=== PATIENT | male | born 1945 | race African-American/Black ===

== ENCOUNTER 2018-09-28 10:47 | Inpatient (IN) | payer MEDICARE, MEDICAID ==
[~2018-09-28] VITALS: Ht 160 cm; Wt 72.3 kg
[2018-09-28] MEDS ORDERED: [UNRECOGNIZED DRUG - REMARK] (11:05)
[2018-09-28 11:41] LABS: BASOPHILS 0.1 % (0-2); EOSINOPHILS 0 % (0-7); HEMATOCRIT 46.2 % (42.0-54.0); HEMOGLOBIN 14.5 g/dL (13.5-17.5); IMMATURE GRANULOCYTES 0.5 % (0-5); LYMPHOCYTES 7.1 % (15-50); MCHC 31.4 g/dL (31.0-37.0); MCV 95.5 fL (80.0-100.0); MEAN PLATELET VOLUME 11.8 fL (7.4-10.4); MONOCYTES 12.9 % (2-11); NEUTROPHILS 79.4 % (40-80); PLATELET COUNT 190 10x3/uL (130-400); RBC 4.84 10x6/uL (4.20-6.10); WBC 15.5 10x3/uL (4.8-10.8)
[2018-09-28 11:49] LABS: APTT 31.4 SECONDS (22.8-39.4); INR 1.14 (0.85-1.17); PROTIME 14.1 SECONDS (11.6-15.0)
[2018-09-28 11:53] LABS: ALBUMIN 2.6 g/dL (3.4-5.0); ALKALINE PHOSPHATASE 116 U/L (46-116); ALT (SGPT) 27 U/L (10-68); BILIRUBIN - TOTAL 0.55 mg/dL (0.2-1.3); CALC OSMOLALITY 285 mosm/kg (275-300); CALCIUM 9.6 mg/dL (8.5-10.1); CHLORIDE - SERUM 100 mmol/L (98-107); CREATININE - SERUM 1.9 mg/dL (0.6-1.3); GLUCOSE 172 mg/dL (74-106); POTASSIUM - SERUM 4.5 mmol/L (3.5-5.1); PROTEIN - SERUM 9.2 g/dL (6.4-8.2); SODIUM 140 mmol/L (136-145); UREA NITROGEN 21 mg/dL (7-18); eGFR NON AFRICAN AMERICAN 37 mL/min (90-120)
[2018-09-28 12:00] VITALS: BP 155/86
[2018-09-28 12:09] LABS: CKMB 0.6 U/L (0.0-3.6); CREATINE KINASE 212 UL (21-232); PRO BNP 1211 pg/mL (0-125)
[2018-09-28 12:13] LABS: TROPONIN-I 0.398 ng/mL (0.000-0.060)
[2018-09-28 13:31] VITALS: BP 139/113
[2018-09-28 14:10] VITALS: BP 146/95
[2018-09-28 14:50] LABS: CKMB 0.9 U/L (0.0-3.6); CREATINE KINASE 233 UL (21-232)
[2018-09-28 14:53] LABS: TROPONIN-I 0.343 ng/mL (0.000-0.060)
[2018-09-28 15:00] VITALS: BP 144/97
[2018-09-28 17:29] VITALS: BP 134/95; BMI 30.1
[2018-09-28 22:42] LABS: BASOPHILS 0.1 % (0-2); EOSINOPHILS 0 % (0-7); HEMATOCRIT 41.5 % (42.0-54.0); HEMOGLOBIN 12.8 g/dL (13.5-17.5); IMMATURE GRANULOCYTES 0.6 % (0-5); LYMPHOCYTES 5.9 % (15-50); MCH 29.7 pg (26.0-34.0); MCHC 30.8 g/dL (31.0-37.0); MCV 96.3 fL (80.0-100.0); MEAN PLATELET VOLUME 11.7 fL (7.4-10.4); MONOCYTES 3.7 % (2-11); NEUTROPHILS 89.7 % (40-80); PLATELET COUNT 179 10x3/uL (130-400); RBC 4.31 10x6/uL (4.20-6.10); RDW 14.3 % (11.5-14.5); WBC 11.7 10x3/uL (4.8-10.8)
[2018-09-28 22:53] LABS: ALBUMIN 2.2 g/dL (3.4-5.0); ALKALINE PHOSPHATASE 102 U/L (46-116); ALT (SGPT) 26 U/L (10-68); BILIRUBIN - TOTAL 0.26 mg/dL (0.2-1.3); CALCIUM 8.9 mg/dL (8.5-10.1); CHLORIDE - SERUM 102 mmol/L (98-107); CREATININE - SERUM 1.7 mg/dL (0.6-1.3); SODIUM 139 mmol/L (136-145); eGFR NON AFRICAN AMERICAN 42 mL/min (90-120)
[2018-09-28 22:54] LABS: CALC OSMOLALITY 292 mosm/kg (275-300); GLUCOSE 284 mg/dL (74-106); POTASSIUM - SERUM 5.5 mmol/L (3.5-5.1); UREA NITROGEN 27 mg/dL (7-18)
[2018-09-28 23:13] LABS: CKMB 0.9 U/L (0.0-3.6); CREATINE KINASE 172 UL (21-232); PRO BNP 1597 pg/mL (0-125)
[2018-09-28 23:14] LABS: TROPONIN-I 0.171 ng/mL (0.000-0.060)
[2018-09-29] VITALS (29 sets, daily range): BP systolic 79–136; BP diastolic 61–103; Ht 160 cm; Wt 72.3 kg
[2018-09-29 05:27] LABS: BASOPHILS 0.1 % (0-2); EOSINOPHILS 0 % (0-7); HEMOGLOBIN 12.1 g/dL (13.5-17.5); IMMATURE GRANULOCYTES 0.9 % (0-5); LYMPHOCYTES 6.9 % (15-50); MCH 29.4 pg (26.0-34.0); MCV 94.7 fL (80.0-100.0); MEAN PLATELET VOLUME 11.8 fL (7.4-10.4); NEUTROPHILS 85.1 % (40-80); PLATELET COUNT 172 10x3/uL (130-400); RBC 4.12 10x6/uL (4.20-6.10)
[2018-09-29 05:50] LABS: ANION GAP 13.2 mmol/L (8-16); BILIRUBIN - TOTAL 0.3 mg/dL (0.2-1.3); CALCIUM 8.6 mg/dL (8.5-10.1); CARBON DIOXIDE 28.7 mmol/L (21.0-32.0); MAGNESIUM - SERUM 2.2 mg/dL (1.8-2.4); POTASSIUM - SERUM 4.9 mmol/L (3.5-5.1); PROTEIN - SERUM 7.4 g/dL (6.4-8.2)
[2018-09-29 15:07] LABS: APPEARANCE CLEAR (CLEAR); BILIRUBIN NEGATIVE (NEGATIVE); COLOR YELLOW (YELLOW); GLUCOSE 100 mg/dL (NEGATIVE); KETONE NEGATIVE (NEGATIVE); NITRITE NEGATIVE (NEGATIVE); PROTEIN 1+ mg/dL (NEGATIVE); RED CELLS - URINE 0-5 /hpf (0-5); SPECIFIC GRAVITY 1.015 (1.005-1.020); UROBILINOGEN NORMAL (NORMAL); WHITE CELLS - URINE NSEEN /hpf (0-5)
[2018-09-30] VITALS (28 sets, daily range): BP systolic 94–153; BP diastolic 67–98
[2018-09-30 04:01] LABS: BASOPHILS 0.1 % (0-2); EOSINOPHILS 0 % (0-7); HEMATOCRIT 42.7 % (42.0-54.0); HEMOGLOBIN 13.2 g/dL (13.5-17.5); IMMATURE GRANULOCYTES 0.7 % (0-5); LYMPHOCYTES 6.2 % (15-50); MCH 28.6 pg (26.0-34.0); MCHC 30.9 g/dL (31.0-37.0); MEAN PLATELET VOLUME 11.7 fL (7.4-10.4); MONOCYTES 6.5 % (2-11); NEUTROPHILS 86.5 % (40-80); PLATELET COUNT 177 10x3/uL (130-400); RBC 4.61 10x6/uL (4.20-6.10)
[2018-09-30 04:09] LABS: MCV 92.6 fL (80.0-100.0); WBC 13.9 10x3/uL (4.8-10.8)
[2018-09-30 09:41] LABS: ALBUMIN 1.9 g/dL (3.4-5.0); ANION GAP 14.4 mmol/L (8-16); BILIRUBIN - TOTAL 0.18 mg/dL (0.2-1.3); CALCIUM 8.5 mg/dL (8.5-10.1); CARBON DIOXIDE 26.4 mmol/L (21.0-32.0); CREATININE - SERUM 2.2 mg/dL (0.6-1.3); MAGNESIUM - SERUM 2.5 mg/dL (1.8-2.4); POTASSIUM - SERUM 3.8 mmol/L (3.5-5.1); PROTEIN - SERUM 6.8 g/dL (6.4-8.2)
[2018-10-01] VITALS (25 sets, daily range): BP systolic 93–155; BP diastolic 64–96
[2018-10-01 05:37] LABS: BASOPHILS 0.3 % (0-2); EOSINOPHILS 0 % (0-7); HEMATOCRIT 38.2 % (42.0-54.0); HEMOGLOBIN 12.4 g/dL (13.5-17.5); IMMATURE GRANULOCYTES 3.5 % (0-5); LYMPHOCYTES 9.1 % (15-50); MCH 29.5 pg (26.0-34.0); MCHC 32.5 g/dL (31.0-37.0); MEAN PLATELET VOLUME 11.8 fL (7.4-10.4); MONOCYTES 6.3 % (2-11); NEUTROPHILS 80.8 % (40-80); PLATELET COUNT 170 10x3/uL (130-400); WBC 11.7 10x3/uL (4.8-10.8)
[2018-10-01 05:42] LABS: ALBUMIN 1.8 g/dL (3.4-5.0); ANION GAP 12.8 mmol/L (8-16); BILIRUBIN - TOTAL 0.23 mg/dL (0.2-1.3); CALCIUM 7.7 mg/dL (8.5-10.1); CARBON DIOXIDE 27.3 mmol/L (21.0-32.0); CREATININE - SERUM 2.1 mg/dL (0.6-1.3); MAGNESIUM - SERUM 2.5 mg/dL (1.8-2.4); POTASSIUM - SERUM 4.1 mmol/L (3.5-5.1); PROTEIN - SERUM 6.8 g/dL (6.4-8.2)
--- NOTE | 2018-10-01 16:35 | MORECARE ---
CASE MANAGEMENT DISCHARGE SUMMARY PATIENT: LIDIA FLORES UNIT: [id number] ADM DATE: 09/28/18 AGE: 73 : 43 SEX: M ROOM/BED: D.2301 AUTHOR: DIETER GUEVARA PHYSICIAN: REFERRING PHYSICIAN: ROLANDO BAR MD DATE OF SERVICE: 10/01/18 Discharge Plan Patient Name: [facility]IDIA FLORES [facility] [facility] 1945 Planned Disposition: Anticipated Discharge Date: Discharge Date: Expected LOS: Initial Reviewer: [email or web address] Initial Review Date: 09/28/2018 Generated: 10/01/18 5:35 pm Comments DCP- Discharge Planning Updated by [email or web address]: Negin Limon on 10/01/18 3:[address] CM attempted to meet with patient for intake assessment. Patient is currently on ventilator sedated and no family available. CM will continue to follow and assist as needed with discharge planning / needs. Patient Name: LIDIA FLORES Page [id number] at 1635 All edits/amendments must be made on the electronic document DICTATION DATE: 10/01/18 1635 RESTAURANT HOST/HOSTESS: SIMEON 10/01/18 1635 RPT#: [id number] DC DATE: STATUS: ADM IN [facility] [address] [place] [address] END OF REPORT
[2018-10-02] VITALS (24 sets, daily range): BP systolic 118–160; BP diastolic 74–92
[2018-10-02 05:25] LABS: HEMATOCRIT 39.3 % (42.0-54.0); HEMOGLOBIN 12.7 g/dL (13.5-17.5); MCH 29.3 pg (26.0-34.0); MCHC 32.3 g/dL (31.0-37.0); MCV 90.8 fL (80.0-100.0); PLATELET COUNT 158 10x3/uL (130-400); RBC 4.33 10x6/uL (4.20-6.10); RDW 14.3 % (11.5-14.5); WBC 13.2 10x3/uL (4.8-10.8)
[2018-10-02 05:26] LABS: MEAN PLATELET VOLUME 11.5 fL (7.4-10.4)
[2018-10-02 05:45] LABS: ALBUMIN 1.8 g/dL (3.4-5.0); ANION GAP 11.6 mmol/L (8-16); BILIRUBIN - TOTAL 0.33 mg/dL (0.2-1.3); CARBON DIOXIDE 28.9 mmol/L (21.0-32.0); CREATININE - SERUM 1.9 mg/dL (0.6-1.3); MAGNESIUM - SERUM 2.5 mg/dL (1.8-2.4); PHOSPHOROUS 2.2 mg/dL (2.5-4.9); POTASSIUM - SERUM 4.5 mmol/L (3.5-5.1); PROTEIN - SERUM 6.7 g/dL (6.4-8.2)
[2018-10-02 05:46] LABS: LYMPHOCYTES 14 % (15-50); MONOCYTES 2 % (2-11); NEUTROPHILS 80 % (40-80); PLATELET ESTIMATE NORMAL; PLATELET MORPHOLOGY NORMAL PLT MORPH
--- NOTE | 2018-10-02 15:01 | CN ---
PATIENT NAME:LIDIA FLORES MEDICAL RECORD: [id number] : 43 LOCATION:RASHIDAD.2301 ADMIT DATE: 09/28/18 ACCOUNT: [id number] CONSULTING PHYSICIAN: ENRRIQUE ALLEN MD REFERRING PHYSICIAN: ROLANDO BAR MD DATE OF CONSULTATION: 09/30/2018 HISTORY: This is a 73-year-old gentleman with no known history of coronary artery disease. Information was gained from old chart and talking with nursing staff. He presented with shortness of breath, cough, and hypotension. He had rapid deterioration in hemodynamic status, requiring intubation and pressors for a short course. He responded fairly well to IV fluids. Noted to have elevated troponin. We are asked to see him concerning cardiovascular status. REVIEW OF SYSTEMS: Unobtainable due to the patient's condition. MEDICATIONS: None chronically. ALLERGIES: None known. PHYSICAL EXAMINATION: GENERAL: Intubated and sedated. VITAL SIGNS: Blood pressure 109/77. Pulse 63 and regular. HEENT: Normocephalic and atraumatic. NECK: No JVD or bruit. HEART: Somewhat distant. Questionable S3 gallop. II/ systolic ejection murmur. LUNGS: Diminished air excursion. ABDOMEN: Soft and nontender. Hypoactive bowel sounds. EXTREMITIES: Pulses are preserved at 1+. There is no edema. IMPRESSION: Pneumonitis with probable sepsis. Difficult to fully interpret troponin given renal insufficiency, etc. Certainly this could be demand ischemia given age. We cannot exclude underlying coronary artery disease. Supportive measures as you are doing. Check echocardiographic study. Further recommendations based on clinical course. TRANSINT:[id number] Voice Confirmation ID: [id number] DOCUMENT ID: [id number] ENRRIQUE ALLEN MD at 1501 CC: [id number] DICTATION DATE: 09/30/18 1103 SEMICONDUCTOR WAFERS ETCHER STRIPPER: 09/30/18 1341 ADM IN [place] [address] [place] [address]
--- NOTE | 2018-10-02 15:01 | EC ---
PATIENT:LIDIA FLORES DATE OF SERVICE: 09/28/18 SEX: M MEDICAL RECORD: [id number] DATE OF : 43 LOCATION:[facility] D230 AGE OF PATIENT: 73 ADMISSION DATE: 09/28/18 REFERRING PHYSICIAN: INTERPRETING PHYSICIAN: ENRRIQUE ALLEN MD ECHOCARDIOGRAM REPORT ECHO CHARGES 4 ECHO COMPLETE Date: 09/29/18 CLINICAL DIAGNOSIS: CHF ECHOCARDIOGRAPHIC MEASUREMENTS (adult normal given) AC root (d.<3.7cm) 3.0 cm LV Septum d (<1.2 cm> 1.0 cm Valve Excursion 1.0 cm LV Septum (systole) 1.2 cm Left Atria (s.<4.0cm> 2.8 cm LVPW d(<1.2cm) 1.0 cm RV (d.<2.3cm) 2.0 cm LVPW (sytole) 1.4 cm LV diastole(<5.6CM) 3.1 cm MV E-F(>70mm/sec) cm LV systole 1.9 cm LVOT Diameter 2.2 cm MV exc.(>10mm) cm Est.ejection fraction (50-75%) % DOPPLER: LVIT cm/sec A 79.0 cm/sec E 42.0 cm/sec LA cm/sec RVSP 18.2 mmHg LVOT 57.0 cm/sec AOP1/2T m/s Asc. Ao 79.0 cm/sec RVOT 49.0 cm/sec RA cm/sec PA 59.0 cm/sec AV Gradient Peak 2.5 mmHg AV Mean 1.3 mmHg AV Area 2.6 cm MV Gradient Peak 2.9 mmHg MV Mean 0.89 mmHg MV Area cm COMMENTS: Chest Pain Coordinator: John FARRELLOE Health Communications Specialist: 3 Dr. Jurado TAPE# PACS Pericardial Effusion N DATE OF SERVICE: 09/29/2018 Adequate 2-D Echo, Color Flow and Spectral Doppler, and M-Mode LVH is present. LV internal dimensions are normal. LV is globally hypokinetic with reduced EF, estimated EF 20% to 25%. Aortic valve sclerosis without stenosis by Doppler interrogation. Left atrium is normal at 2.7 cm. Mitral valve shows no prolapse. Trace MR. Right sided chambers are normal. Trace TR. TRANSINT:[id number] Voice Confirmation ID: [id number] DOCUMENT ID: [id number] ECHOCARDIOGRAM REPORT [id number] LIDIA FLORES,ENRRIQUE Johnson MD at 1501 CC: [id number] DICTATION DATE: 09/29/18 184 VISITOR SERVICES ASSISTANT: 09/30/18 0209 ADM IN [place] [id number] [place] [id number]
[2018-10-03] VITALS (26 sets, daily range): BP systolic 120–177; BP diastolic 78–110
[2018-10-03 04:35] LABS: HEMATOCRIT 39.6 % (42.0-54.0); HEMOGLOBIN 12.6 g/dL (13.5-17.5); MCH 28.7 pg (26.0-34.0); MCHC 31.8 g/dL (31.0-37.0); MCV 90.2 fL (80.0-100.0); MEAN PLATELET VOLUME 11.5 fL (7.4-10.4); PLATELET COUNT 154 10x3/uL (130-400); RBC 4.39 10x6/uL (4.20-6.10); RDW 14.4 % (11.5-14.5)
[2018-10-03 04:44] LABS: ANION GAP 11.9 mmol/L (8-16); BILIRUBIN - TOTAL 0.28 mg/dL (0.2-1.3); CALCIUM 8.4 mg/dL (8.5-10.1); CARBON DIOXIDE 30.8 mmol/L (21.0-32.0); CREATININE - SERUM 1.8 mg/dL (0.6-1.3); MAGNESIUM - SERUM 2.9 mg/dL (1.8-2.4); PHOSPHOROUS 1.9 mg/dL (2.5-4.9); POTASSIUM - SERUM 4.7 mmol/L (3.5-5.1); PROTEIN - SERUM 7.2 g/dL (6.4-8.2)
[2018-10-03 04:49] LABS: ALBUMIN 2.3 g/dL (3.4-5.0)
[2018-10-03 05:01] LABS: LYMPHOCYTES 9 % (15-50); MONOCYTES 5 % (2-11); NEUTROPHILS 80 % (40-80); PLATELET ESTIMATE NORMAL; PLATELET MORPHOLOGY NORMAL PLT MORPH
[2018-10-03 07:38] LABS: IMMUNOGLOBULIN A 599 mg/dL (61-437)
--- NOTE | 2018-10-03 15:40 | MORECARE ---
CASE MANAGEMENT DISCHARGE SUMMARY PATIENT: LIDIA FLORES UNIT: [id number] ADM DATE: 09/28/18 AGE: 73 : 43 SEX: M ROOM/BED: D.2301 AUTHOR: DIETER GUEVARA PHYSICIAN: REFERRING PHYSICIAN: ROLANDO BAR MD DATE OF SERVICE: 10/03/18 Discharge Plan Patient Name: LIDIA FLORES [facility]: [facility]:[place] : 1945 Planned Disposition: Anticipated Discharge Date: Discharge Date: Expected LOS: Initial Reviewer: [email or web address] Initial Review Date: 09/28/2018 Generated: 10/03/18 4:39 pm Comments DCP- Discharge Planning Updated by [email or web address] Limon on 10/01/18 3:[address] CM attempted to meet with patient for intake assessment. Patient is currently on ventilator sedated and no family available. CM will continue to follow and assist as needed with discharge planning / needs. DCPIA - Discharge Planning Initial Assessment Updated by [email or web address]: Negin Limon on 10/03/18 3:38 pm * Is the patient Alert and Oriented? Yes * How many steps to enter\exit or inside your home? * PCP Dr. Griffiths * Pharmacy [facility] * Preadmission Environment Home Alone * ADLs Independent * List name and contact numbers for known caregivers / representatives who currently or will assist patient after discharge: Maria Elena Jackson - sister - [phone] Mariusz Flores - brother [facility] - Denia Mccrary [facility] - [phone] * Verbal permission to speak to the caregivers and representatives has been obtained from the patient. N/A * Community resources currently utilized None * Additional services required to return to the preadmission environment? No * Can the patient safely return to the preadmission environment? Yes * Has this patient been hospitalized within the prior 30 days at any hospital? No Last DP export: 10/01/18 3:35 p Patient Name: LIDIA FLORES Page [phone] at 1540 All edits/amendments must be made on the electronic document DICTATION DATE: 10/03/181538 CURATORIAL ASSISTANT: SIMEON 10/03/18 1539 RPT#: [id number] DC DATE: STATUS: ADM IN [facility] [address] [place] [address] END OF REPORT
--- NOTE | 2018-10-03 15:47 | MORECARE ---
CASE MANAGEMENT DISCHARGE SUMMARY PATIENT: LIDIA FLORES UNIT: [id number] ADM DATE: 09/28/18 AGE: 73 : 43 SEX: M ROOM/BED: D.2301 AUTHOR: ISMAELDOC PHYSICIAN: REFERRING PHYSICIAN: ROLANDO BAR MD DATE OF SERVICE: 10/03/18 Discharge Plan Patient Name: LDIIA FLORES Facility: [facility]:[place] : 1945 Planned Disposition: Anticipated Discharge Date: Discharge Date: Expected LOS: Initial Reviewer: [email or web address] Initial Review Date: 09/28/2018 Generated: 10/03/18 4:47 pm Comments DCP- Discharge Planning Updated by [email or web address]: Negin Limon on 10/03/18 2:[address] Patient Name: LIDIA FLORES Admission Status: ER Accout number: [id number] Admission Date: 09-28-2018 : 1945 Admission Diagnosis:SEPSIS, UNSPECIFIED ORGANISM Attending: ROLANDO BAR Current LOS: 5 Anticipated DC Date: Planned Disposition: Primary Insurance: [facility] MEDICARE SOLUTIONS Discharge Planning Comments: CM met with patient at bedside. Patient states he lives alone and plans to return to his home at discharge. Patient was extubated earlier today. Patient denies any discharge needs at this time. Patient is just wanting to eat and having to await swallowing eval. CM will continue to monitor and assist as needed with discharge planning / needs. Shipper/Receiver: Negin Limon DCP- Discharge Planning Updated by [email or web address]: Negin Limon on 10/01/18 3:[address] CM attempted to meet with patient for intake assessment. Patient is currently on ventilator sedated and no family available. CM will continue to follow and assist as needed with discharge planning / needs. DCPIA - Discharge Planning Initial Assessment Updated by [email or web address]: Negin Limon on 10/03/18 3:38 pm * Is the patient Alert and Oriented? Yes * How many steps to enter\exit or inside your home? * PCP Dr. Griffiths * Pharmacy [facility] * Preadmission Environment Home Alone * ADLs Independent * List name and contact numbers for known caregivers / representatives who currently or will assist patient after discharge: Maria Elena Jackson - sister - [phone] Mariusz Flores - brother POA - Denia Mccrary - sister - [phone] * Verbal permission to speak to the caregivers and representatives has been obtained from the patient. N/A * Community resources currently utilized None * Additional services required to return to the preadmission environment? No * Can the patient safely return to the preadmission environment? Yes * Has this patient been hospitalized within the prior 30 days at any hospital? No Last DP export: 10/03/18 2:39 p Patient Name: LIDIA FLORES Page [phone] at 1547 All edits/amendments must be made on the electronic document DICTATION DATE: 10/03/181546 MINISTER OF RELIGION: SIMEON 10/03/181546 RPT#: [id number] DC DATE: STATUS: ADM IN [facility] [address] [place] [address] END OF REPORT
--- NOTE | 2018-10-03 16:42 | CN ---
PATIENT NAME:LIDIA FLORES MEDICAL RECORD: [id number] : 43 LOCATION:RASHIDAD.2301 ADMIT DATE: 09/28/18 ACCOUNT: [id number] CONSULTING PHYSICIAN: KWABENA CRAFT MD REFERRING PHYSICIAN: AMANDA BAR MD DATE OF CONSULTATION: 09/28/2018 CONSULT REQUESTING PHYSICIAN: Amanda Bar MD REASON FOR CONSULTATION: Acute exacerbation of COPD. HISTORY OF PRESENT ILLNESS: Mr. Flores is a 73-year-old -Slov[place] gentleman who has a history of severe COPD, still current everyday smoker. The patient came into the ER for worsening shortness of breath for the last few days. He has a fever and chill. Workup showed that he has an elevated troponin. The patient is coughing. The cough is productive of yellow color sputum production. There is also shortness of breath with mild exertion. Denies any night sweats. REVIEW OF SYSTEMS: As in history of present illness. PAST MEDICAL HISTORY: 1. COPD of severe degree. 2. Associated asthma. 3. History of interstitial lung disease. 4. Possible pulmonary nodule. 5. Bronchiectasis. ALLERGIES: There are no known drug allergies. MEDICATIONS: Saperion is reviewed. PERSONAL AND SOCIAL HISTORY: The patient is still current everyday smoker. He is a nondrinker. FAMILY HISTORY: Noncontributory. PHYSICAL EXAMINATION: GENERAL: Now, the patient is lying comfortably. He is in mild distress. VITAL SIGNS: The blood pressure is 134/95, pulse is 125, respirations 22, temperature is 99, SpO2 93% on 5 liters nasal cannula. HEENT: Conjunctivae are pink. Sclerae are not icteric. NECK: Supple, no JVD. CHEST: The chest excursion is minimal on both bilateral crackles or wheezing on forceful expiration. HEART: Rhythm regular, normal sound, no murmur. ABDOMEN: Soft, bowel sounds present. No hepatosplenomegaly. RECTAL: Deferred. EXTREMITIES: No cyanosis, no clubbing, no pedal edema. CENTRAL NERVOUS SYSTEM: The patient is awake and alert. There are no obvious cranial nerve abnormality. The gait was not tested. CHEST RADIOGRAPH: There are increased interstitial markings bilaterally. There are calcified granuloma. There are also 2-3 mm pulmonary nodules. CONSULT REPORT [id number] LIDIA FLORES OTHER LABORATORY DATA: CBC: WBC 15.5, hemoglobin 14.5, hematocrit 46.2, the platelet count 190. Chemistry: Sodium is 140, creatinine is 1.9. ABG: The pH is 7.29, pCO2 is 62.9, the pO2 64. The bicarbonate is 30.6. The lactic acid is 1.5. IMPRESSION: 1. Olqko-wj-rjgcnnn hypoxic hypercapnic respiratory failure. 2. Respiratory acidosis. 3. Pneumonia, most likely community-acquired pneumonia. 4. Acute exacerbation of chronic obstructive pulmonary disease. 5. Leukocytosis. 6. Acute kidney injury. 7. Interstitial lung disease. 8. Bronchiectasis. 9. Elevated cardiac enzyme. 10. Tobacco dependence syndrome. RECOMMENDATION: 1. Discontinue Zithromax, start on Levaquin IV. 2. Rocephin IV. 3. Adjust the dose of methylprednisolone. 4. Brovana, budesonide nebulizer. 5. Albuterol ipratropium nebulizer. 6. Singulair 10 mg a day. 7. IV fluid. 8. Follow up labs and chest radiograph. Dr. Bar, thank you for involving me in the care of Ms. Flores. TRANSINT:[id number] Voice Confirmation ID: [id number] DOCUMENT ID: [id number] KWABENA CRAFT MD at 1642 CC: [id number] DICTATION DATE: 09/28/18 175 PRIMARY PRODUCTS INSPECTORS: 09/29/18 0107 ADM IN [facility] [address] [place] [address]
[2018-10-04] VITALS (14 sets, daily range): BP systolic 122–172; BP diastolic 80–98
[2018-10-04 05:17] LABS: HEMOGLOBIN 12.4 g/dL (13.5-17.5); MCH 28.5 pg (26.0-34.0); MCHC 31.8 g/dL (31.0-37.0); MCV 89.7 fL (80.0-100.0); MEAN PLATELET VOLUME 11.2 fL (7.4-10.4); PLATELET COUNT 160 10x3/uL (130-400); RBC 4.35 10x6/uL (4.20-6.10); RDW 14.2 % (11.5-14.5)
[2018-10-04 05:46] LABS: LYMPHOCYTES 13 % (15-50); MONOCYTES 2 % (2-11); NEUTROPHILS 79 % (40-80); PLATELET ESTIMATE DECREASED
[2018-10-04 05:51] LABS: ALBUMIN 2.6 g/dL (3.4-5.0); ANION GAP 15.4 mmol/L (8-16); BILIRUBIN - TOTAL 0.32 mg/dL (0.2-1.3); CALCIUM 8.7 mg/dL (8.5-10.1); CARBON DIOXIDE 28.8 mmol/L (21.0-32.0); CREATININE - SERUM 1.7 mg/dL (0.6-1.3); MAGNESIUM - SERUM 2.6 mg/dL (1.8-2.4); POTASSIUM - SERUM 5.2 mmol/L (3.5-5.1); PROTEIN - SERUM 7.2 g/dL (6.4-8.2)
[2018-10-04 20:09] LABS: IGG SUBCLASS 1 607 mg/dL (248-810); IGG SUBCLASS 2 292 mg/dL (130-555); IGG SUBCLASS 3 33 mg/dL (15-102); IGG SUBCLASS 4 28 mg/dL (2-96); IMMUNOGLOBULIN G 928 mg/dL (700-1600)
[2018-10-05] VITALS: BP 128/89
[2018-10-05 04:00] VITALS: BP 132/92
[2018-10-05 06:23] LABS: BASOPHILS 0.2 % (0-2); EOSINOPHILS 0 % (0-7); HEMATOCRIT 38.9 % (42.0-54.0); HEMOGLOBIN 12.6 g/dL (13.5-17.5); IMMATURE GRANULOCYTES 13.5 % (0-5); LYMPHOCYTES 4.5 % (15-50); MCH 28.8 pg (26.0-34.0); MCHC 32.4 g/dL (31.0-37.0); MCV 88.8 fL (80.0-100.0); MEAN PLATELET VOLUME 11.6 fL (7.4-10.4); MONOCYTES 5.5 % (2-11); NEUTROPHILS 76.3 % (40-80); PLATELET COUNT 166 10x3/uL (130-400); RBC 4.38 10x6/uL (4.20-6.10); WBC 16.8 10x3/uL (4.8-10.8)
[2018-10-05 06:49] LABS: ANION GAP 12.9 mmol/L (8-16); CALCIUM 8.6 mg/dL (8.5-10.1); CARBON DIOXIDE 26.3 mmol/L (21.0-32.0); CREATININE - SERUM 1.7 mg/dL (0.6-1.3); PHOSPHOROUS 3.1 mg/dL (2.5-4.9); POTASSIUM - SERUM 5.2 mmol/L (3.5-5.1)
[2018-10-05 09:21] VITALS: BP 134/85
[2018-10-05 12:52] VITALS: BP 138/85
[2018-10-05 15:29] LABS: IMMUNOGLOBULIN E 1142 IU/mL (0-100)
[2018-10-05 15:42] LABS: CREATININE - URINE 48.3 mg/dL (30-125); PRO/CRE RATIO URINE 0.6 mg/g; PROTEIN - URINE 28.9 mg/dL (0.0-11.9)
[2018-10-05 16:12] VITALS: BP 125/82
--- NOTE | 2018-10-05 17:02 | MORECARE ---
CASE MANAGEMENT DISCHARGE SUMMARY PATIENT: LIDIA FLORES UNIT: [id number] ADM DATE: 09/28/18 AGE: 73 : 43 SEX: M ROOM/BED: D.2115 AUTHOR: ISMAELDOC PHYSICIAN: REFERRING PHYSICIAN: ROLANDO BAR MD DATE OF SERVICE: 10/05/18 Discharge Plan Patient Name: LIDIA FLORES Facility: [facility]:[place] : 1945 Planned Disposition: Inpatient Rehab Anticipated Discharge Date: 10/08/18 Discharge Date: Expected LOS: 10 Initial Reviewer: [email or web address] Initial Review Date: 09/28/2018 Generated: 10/05/18 6:02 pm Comments DCP- Discharge Planning Updated by [email or web address]: Negin Limon on 10/03/18 2:[address] Patient Name: LIDIA FLORES Admission Status: ER Accout number: [id number] Admission Date: 09-28-2018 : 1945 Admission Diagnosis:SEPSIS, UNSPECIFIED ORGANISM Attending: ROLANDO BAR Current LOS: 5 Anticipated DC Date: Planned Disposition: Primary Insurance: [facility] MEDICARE SOLUTIONS Discharge Planning Comments: CM met with patient at bedside. Patient states he lives alone and plans to return to his home at discharge. Patient was extubated earlier today. Patient denies any discharge needs at this time. Patient is just wanting to eat and having to await swallowing eval. CM will continue to monitor and assist as needed with discharge planning / needs. Cytotechnologist/Histotechnologist: Negin Limon DCP- Discharge Planning Updated by [email or web address]: Negin Limon on 10/01/18 3:[address] CM attempted to meet with patient for intake assessment. Patient is currently on ventilator sedated and no family available. CM will continue to follow and assist as needed with discharge planning / needs. DCPIA - Discharge Planning Initial Assessment Updated by [email or web address]: Negin Limon on 10/03/18 3:38 pm * Is the patient Alert and Oriented? Yes * How many steps to enter\exit or inside your home? * PCP Dr. Griffiths * Pharmacy [facility] * Preadmission Environment Home Alone * ADLs Independent * List name and contact numbers for known caregivers / representatives who currently or will assist patient after discharge: Maria Elena Jackson - sister - [phone] Mariusz Flores - brother POA - Denia Mccrary - sister - [phone] * Verbal permission to speak to the caregivers and representatives has been obtained from the patient. N/A * Community resources currently utilized None * Additional services required to return to the preadmission environment? No * Can the patient safely return to the preadmission environment? Yes * Has this patient been hospitalized within the prior 30 days at any hospital? No Coverage Notice Reviewer: [email or web address] Key Velásquez Notice Issued Date-Time: 10/05/2018 15:45 Notice Type: IM Discharge Notice Notice Delivered To: Patient Relationship to Patient: Prenatal Nurse Name: Delivery Method: HAND - Hand Delivered Mary Ann Days: Prior Verbal Notification: Recipient Understood Notice: Yes Recipient Signature: Yes Med Rec Note Co-signed by Attending: Coverage Notice Comment: Last DP export: 10/03/18 2:47 p Patient Name: LIDIA FLORES Page 27564 at 1702 All edits/amendments must be made on the electronic document DICTATION DATE: 10/05/181700 PROMPT CARE RN: SIMEON 10/05/181700 RPT#: [id number] DC DATE: STATUS: ADM IN [facility] [address] [place] [address] END OF REPORT
--- NOTE | 2018-10-05 17:09 | MORECARE ---
CASE MANAGEMENT DISCHARGE SUMMARY PATIENT: LIDIA FLORES UNIT: [id number] ADM DATE: 09/28/18 AGE: 73 : 43 SEX: M ROOM/BED: D.2115 AUTHOR: DIETER GUEVARA PHYSICIAN: REFERRING PHYSICIAN: ROLANDO BAR MD DATE OF SERVICE: 10/05/18 Discharge Plan Patient Name: LIDIA FLORES [facility] [facility] 1945 Planned Disposition: Inpatient Rehab Anticipated Discharge Date: 10/08/18 Discharge Date: Expected LOS: 10 Initial Reviewer: [email or web address] Initial Review Date: 09/28/2018 Generated: 10/05/18 6:09 pm Comments DCP- Discharge Planning Updated by [email or web address]: Stanley Velásquez on 10/05/18 4:[address] Patient Name: LIDIA FLORES Encounter No: [id number] : 1945 Primary Insurance: [facility] MEDICARE SOLUTIONS Anticipated DC Date: 10-08-2018 Planned Disposition: Inpatient Rehab External Planned Provider: [facility] DCP follow-up note: CM RECEIVED ORDER FOR INPATIENT REHAB PRESCREENING. CM SPOKE TO PT IN ROOM, DISCUSSED REHAB OPTIONS, LOCATIONS AND PROVIDERS. PT WOULD LIKE TO SPEAK TO REHAB HERE FOR ADMISSION TO [facility]. PT UNDERSTANDS HE HAS MANAGED MEDICARE THAT REQUIRES PRIOR AUTORIZATION FOR SERVICES. IMPORTANT MESSAGE FROM MEDICARE PROVIDED AND EXPLAINED. CM NOTIFIED [facility] OF [facility]. CM WAITING ADMISSION DETERMINATION FROM [facility] WELL INSURANCE AUTHORIZATION FOR INPATIENT REHAB SERVICES. HONG Quiroz DCP- Discharge Planning Updated by [email or web address]: Negin Limon on 10/03/18 2:[address] Patient Name: LIDIA FLORES Admission Status: ER Accout number: [id number] Admission Date: 09-28-2018 : 1945 Admission Diagnosis:SEPSIS, UNSPECIFIED ORGANISM Attending: ROLANDO BAR Current LOS: 5 Anticipated DC Date: Planned Disposition: Primary Insurance: [facility] MEDICARE SOLUTIONS Discharge Planning Comments: CM met with patient at bedside. Patient states he lives alone and plans to return to his home at discharge. Patient was extubated earlier today. Patient denies any discharge needs at this time. Patient is just wanting to eat and having to await swallowing eval. CM will continue to monitor and assist as needed with discharge planning / needs. Billboard Poster Helper: Negin Limon DCP- Discharge Planning Updated by [email or web address]: Negin Limon on 10/01/18 3:[address] CM attempted to meet with patient for intake assessment. Patient is currently on ventilator sedated and no family available. CM will continue to follow and assist as needed with discharge planning / needs. DCPIA - Discharge Planning Initial Assessment Updated by [email or web address]: Negin Limon on 10/03/18 3:38 pm * Is the patient Alert and Oriented? Yes * How many steps to enter\exit or inside your home? * PCP Dr. Griffiths * Pharmacy [facility] * Preadmission Environment Home Alone * ADLs Independent * List name and contact numbers for known caregivers / representatives who currently or will assist patient after discharge: Maria Elena Jackson [facility] [phone] Mariusz Flores - brother [facility] Denia [facility] [phone] * Verbal permission to speak to the caregivers and representatives has been obtained from the patient. N/A * Community resources currently utilized None * Additional services required to return to the preadmission environment? No * Can the patient safely return to the preadmission environment? Yes * Has this patient been hospitalized within the prior 30 days at any hospital? No Coverage Notice Reviewer: [id number] Key Velásquez Notice Issued Date-Time: 10/05/2018 15:45 Notice Type: IM Discharge Notice Notice Delivered To: Patient Relationship to Patient: Brand Sales Consultant Name: Delivery Method: HAND - Hand Delivered Mary Ann Days: Prior Verbal Notification: Recipient Understood Notice: Yes Recipient Signature: Yes Med Rec Note Co-signed by Attending: Coverage Notice Comment: Last DP export: 10/05/18 4:02 p Patient Name: LIDIA FLORES Page [phone] at 1709 All edits/amendments must be made on the electronic document DICTATION DATE: 10/05/181707 CLINICAL SPECIALIST: SIMEON 10/05/181707 RPT#: [id number] DC DATE: STATUS: ADM IN [facility] [address] [place] [place] [address] END OF REPORT
[2018-10-05 19:00] VITALS: BP 108/64
[2018-10-06] VITALS: BP 123/81
[2018-10-06 04:00] VITALS: BP 131/75
[2018-10-06 07:33] LABS: ANION GAP 12.7 mmol/L (8-16); CALCIUM 8.4 mg/dL (8.5-10.1); CARBON DIOXIDE 25.7 mmol/L (21.0-32.0); CREATININE - SERUM 1.6 mg/dL (0.6-1.3); PHOSPHOROUS 3.1 mg/dL (2.5-4.9); POTASSIUM - SERUM 5.4 mmol/L (3.5-5.1)
[2018-10-06 07:42] LABS: BASOPHILS 0.3 % (0-2); EOSINOPHILS 0.1 % (0-7); HEMATOCRIT 41.5 % (42.0-54.0); HEMOGLOBIN 13.4 g/dL (13.5-17.5); IMMATURE GRANULOCYTES 11.3 % (0-5); LYMPHOCYTES 5.4 % (15-50); MCH 28.5 pg (26.0-34.0); MCHC 32.3 g/dL (31.0-37.0); MCV 88.3 fL (80.0-100.0); MEAN PLATELET VOLUME 10.9 fL (7.4-10.4); MONOCYTES 6.6 % (2-11); NEUTROPHILS 76.3 % (40-80); PLATELET COUNT 161 10x3/uL (130-400); RDW 14.1 % (11.5-14.5); WBC 14.9 10x3/uL (4.8-10.8)
[2018-10-06 08:43] LABS: ERYTHROCYTE SEDIMENTATION RATE 34 mm/hr (0-20)
[2018-10-06 10:34] VITALS: BP 120/75
[2018-10-06 13:06] VITALS: BP 108/67
[2018-10-06 16:17] VITALS: BP 117/77
[2018-10-06 19:54] VITALS: BP 126/85
[2018-10-07 03:44] VITALS: BP 129/83
[2018-10-07 05:14] LABS: HEMATOCRIT 41.4 % (42.0-54.0); HEMOGLOBIN 13.4 g/dL (13.5-17.5); MCH 28.9 pg (26.0-34.0); MCHC 32.4 g/dL (31.0-37.0); MCV 89.4 fL (80.0-100.0); MEAN PLATELET VOLUME 11.3 fL (7.4-10.4); PLATELET COUNT 168 10x3/uL (130-400); RBC 4.63 10x6/uL (4.20-6.10); RDW 14.4 % (11.5-14.5); WBC 13.3 10x3/uL (4.8-10.8)
[2018-10-07 05:32] LABS: ANION GAP 13.1 mmol/L (8-16); CALCIUM 8.3 mg/dL (8.5-10.1); CARBON DIOXIDE 26.3 mmol/L (21.0-32.0); CREATININE - SERUM 1.5 mg/dL (0.6-1.3); PHOSPHOROUS 3.3 mg/dL (2.5-4.9); POTASSIUM - SERUM 5.4 mmol/L (3.5-5.1)
[2018-10-07 07:46] LABS: LYMPHOCYTES 13 % (15-50); MONOCYTES 3 % (2-11); NEUTROPHILS 84 % (40-80); PLATELET ESTIMATE DECREASED
[2018-10-07 09:27] VITALS: BP 137/88
[2018-10-07 11:42] VITALS: BP 147/89
[2018-10-07 15:57] VITALS: BP 119/60
[2018-10-07 20:00] VITALS: BP 119/82
[2018-10-08 04:00] VITALS: BP 120/78
[2018-10-08 06:51] LABS: BASOPHILS 0.1 % (0-2); EOSINOPHILS 0 % (0-7); HEMATOCRIT 40.6 % (42.0-54.0); HEMOGLOBIN 13.1 g/dL (13.5-17.5); IMMATURE GRANULOCYTES 3.8 % (0-5); LYMPHOCYTES 5.8 % (15-50); MCH 28.7 pg (26.0-34.0); MCHC 32.3 g/dL (31.0-37.0); MEAN PLATELET VOLUME 10.5 fL (7.4-10.4); MONOCYTES 5.7 % (2-11); NEUTROPHILS 84.6 % (40-80); PLATELET COUNT 165 10x3/uL (130-400); RBC 4.56 10x6/uL (4.20-6.10); RDW 14.3 % (11.5-14.5); WBC 14.9 10x3/uL (4.8-10.8)
[2018-10-08 07:05] LABS: ANION GAP 11.9 mmol/L (8-16); CALCIUM 8.2 mg/dL (8.5-10.1); CARBON DIOXIDE 28.5 mmol/L (21.0-32.0); CREATININE - SERUM 1.4 mg/dL (0.6-1.3); PHOSPHOROUS 3.8 mg/dL (2.5-4.9)
[2018-10-08 07:06] LABS: POTASSIUM - SERUM 4.4 mmol/L (3.5-5.1)
[2018-10-08 08:56] VITALS: BP 115/78
[2018-10-08 17:10] LABS: SPE - A/G RATIO 1.1 (0.7-1.7); SPE - ALBUMIN 3.3 g/dL (2.9-4.4); SPE - ALPHA-1 GLOBULIN 0.2 g/dL (0.0-0.4); SPE - ALPHA-2 GLOBULIN 0.5 g/dL (0.4-1.0); SPE - GAMMA GLOBULIN 1.3 g/dL (0.4-1.8); SPE - M-SPIKE Not Observed g/dL (Not Observed); SPE - TOTAL PROTEIN 6.3 g/dL (6.0-8.5)
[2018-10-08 19:00] VITALS: BP 130/78
[2018-10-09 04:00] VITALS: BP 112/67
[2018-10-09 05:15] LABS: BASOPHILS 0.1 % (0-2); EOSINOPHILS 0 % (0-7); HEMATOCRIT 39.2 % (42.0-54.0); HEMOGLOBIN 12.7 g/dL (13.5-17.5); IMMATURE GRANULOCYTES 1.6 % (0-5); MCH 28.7 pg (26.0-34.0); MCHC 32.4 g/dL (31.0-37.0); MCV 88.7 fL (80.0-100.0); MEAN PLATELET VOLUME 10.6 fL (7.4-10.4); MONOCYTES 4.6 % (2-11); NEUTROPHILS 88.7 % (40-80); PLATELET COUNT 158 10x3/uL (130-400); RBC 4.42 10x6/uL (4.20-6.10); RDW 14.2 % (11.5-14.5); WBC 12.2 10x3/uL (4.8-10.8)
[2018-10-09 05:32] LABS: ANION GAP 13.4 mmol/L (8-16); CARBON DIOXIDE 27.4 mmol/L (21.0-32.0); CREATININE - SERUM 1.5 mg/dL (0.6-1.3); POTASSIUM - SERUM 4.8 mmol/L (3.5-5.1)
[2018-10-09 07:00] VITALS: BP 100/82
[2018-10-09 13:02] VITALS: BP 112/79
--- NOTE | 2018-10-09 14:13 | MORECARE ---
CASE MANAGEMENT DISCHARGE SUMMARY PATIENT: LIDIA FLORES UNIT: [id number] ADM DATE: 09/28/18 AGE: 73 : 44 SEX: M ROOM/BED: D.2115 AUTHOR: DIETER GUEVARA PHYSICIAN: REFERRING PHYSICIAN: ROLANDO BAR MD DATE OF SERVICE: 10/09/18 Discharge Plan Patient Name: LIDIA FLORES [facility] [facility] 1945 Planned Disposition: Home Anticipated Discharge Date: 10/09/18 Discharge Date: Expected LOS: 11 Initial Reviewer: [id number] Initial Review Date: 09/28/2018 Generated: 10/09/18 3:13 pm Comments DCP- Discharge Planning Updated by [id number]: Stanley Velásquez on 10/05/18 4:[address] Patient Name: LIDIA FLORES Encounter No: [id number] : 1945 Primary Insurance: [facility] MEDICARE SOLUTIONS Anticipated DC Date: 10-08-2018 Planned Disposition: Inpatient Rehab External Planned Provider: [facility] DCP follow-up note: CM RECEIVED ORDER FOR INPATIENT REHAB PRESCREENING. CM SPOKE TO PT IN ROOM, DISCUSSED REHAB OPTIONS, LOCATIONS AND PROVIDERS. PT WOULD LIKE TO SPEAK TO REHAB HERE FOR ADMISSION TO [facility]. PT UNDERSTANDS HE HAS MANAGED MEDICARE THAT REQUIRES PRIOR AUTORIZATION FOR SERVICES. IMPORTANT MESSAGE FROM MEDICARE PROVIDED AND EXPLAINED. CM NOTIFIED [facility]. CM WAITING ADMISSION DETERMINATION FROM [facility] INPATIENT REHAB WELL INSURANCE AUTHORIZATION FOR INPATIENT REHAB SERVICES. HONG Quiroz MANGWANDA DCP- Discharge Planning Updated by [id number]: Negin Limon on 10/03/18 2:[address] Patient Name: LIDIA FLORES Admission Status: ER Accout number: [id number] Admission Date: 09-28-2018 : 1945 Admission Diagnosis:SEPSIS, UNSPECIFIED ORGANISM Attending: ROLANDO BAR Current LOS: 5 Anticipated DC Date: Planned Disposition: Primary Insurance: [facility] MEDICARE SOLUTIONS Discharge Planning Comments: CM met with patient at bedside. Patient states he lives alone and plans to return to his home at discharge. Patient was extubated earlier today. Patient denies any discharge needs at this time. Patient is just wanting to eat and having to await swallowing eval. CM will continue to monitor and assist as needed with discharge planning / needs. Piccolo Mechanic: Negin Limon DCP- Discharge Planning Updated by [id number]: Negin Limon on 10/01/18 3:[address] CM attempted to meet with patient for intake assessment. Patient is currently on ventilator sedated and no family available. CM will continue to follow and assist as needed with discharge planning / needs. DCPIA - Discharge Planning Initial Assessment Updated by [id number]: Negin Limon on 10/03/18 3:38 pm * Is the patient Alert and Oriented? Yes * How many steps to enter\exit or inside your home? * PCP Dr. Griffiths * Pharmacy [facility] * Preadmission Environment Home Alone * ADLs Independent * List name and contact numbers for known caregivers / representatives who currently or will assist patient after discharge: Maria Elena Jackson [facility] - [phone] Mariusz Flores - brotherasmo [facility] Denia [facility] - [phone] * Verbal permission to speak to the caregivers and representatives has been obtained from the patient. N/A * Community resources currently utilized None * Additional services required to return to the preadmission environment? No * Can the patient safely return to the preadmission environment? Yes * Has this patient been hospitalized within the prior 30 days at any hospital? No Coverage Notice Reviewer: [id number] Key Velásquez Notice Issued Date-Time: 10/05/2018 15:45 Notice Type: IM Discharge Notice Notice Delivered To: Patient Relationship to Patient: Perfume And Toilet Water Maker Name: Delivery Method: HAND - Hand Delivered Mary Ann Days: Prior Verbal Notification: Recipient Understood Notice: Yes Recipient Signature: Yes Med Rec Note Co-signed by Attending: Coverage Notice Comment: Reviewer: [id number] Key Velásquez Notice Issued Date-Time: 10/09/2018 12:40 Notice Type: IM Discharge Notice Notice Delivered To: Patient Relationship to Patient: Perfume And Toilet Water Maker Name: Delivery Method: HAND - Hand Delivered Mary Ann Days: Prior Verbal Notification: Recipient Understood Notice: Yes Recipient Signature: Yes Med Rec Note Co-signed by Attending: Coverage Notice Comment: Last DP export: 10/05/18 4:09 p Patient Name: LIDIA FLORES Page [id number] at 1413 All edits/amendments must be made on the electronic document DICTATION DATE: 10/09/181412 WIRE STRANDER: SIMEON 10/09/181412 RPT#: [id number] DC DATE: STATUS: ADM IN [facility] [address] [place] [address] END OF REPORT
--- NOTE | 2018-10-09 14:20 | MORECARE ---
CASE MANAGEMENT DISCHARGE SUMMARY PATIENT: LIDIA FLORES UNIT: [id number] ADM DATE: 09/28/18 AGE: 73 : 44 SEX: M ROOM/BED: D.8485 AUTHOR: ISMAEL,DOC PHYSICIAN: REFERRING PHYSICIAN: ROLANDO BAR MD DATE OF SERVICE: 10/09/18 Discharge Plan Patient Name: LIDIA FLORES Facility: [facility]:[place] : 1945 Planned Disposition: Home Anticipated Discharge Date: 10/09/18 Discharge Date: Expected LOS: 11 Initial Reviewer: [email or web address] Initial Review Date: 09/28/2018 Generated: 10/09/18 3:20 pm Comments DCP- Discharge Planning Updated by [id number]: Stanley Velásquez on 10/09/18 1:[address] Patient Name: LIDIA FLORES Encounter No: [id number] : 1945 Primary Insurance: [facility] MEDICARE SOLUTIONS Anticipated DC Date: 10-09-2018 Planned Disposition: Home DCP follow-up note: CM RECEIVED ORDERS FOR VEST THERAPY AT HOME. CM MET WITH PT IN ROOM TO DISCUSS DISCHARGE NEEDS AND PLANNING. CM DISCUSSED AVAILABILITY OF HOME HEALTH, REHAB SERVICES AND MEDICAL EQUIPMENT WELL VEST THERAPY. PT STATES HE WANTS TO DISCHARGE HOME AND DOES NOT WANT TO WAIT FOR INPATIENT REHAB ANY LONGER. CM EXPLAINED THAT INSURANCE MAY PROVIDE DETERMINATION TODAY OR TOMORROW. PT REPORTS HE IS STONG ENOUGH TO GO HOME NOW. PT REPORTS GETTING UP INDEPENDENTLY IN ROOM WITHOUT PROBLEM. CM REVIEWED THERAPY NOTES AND INFORMED PT THAT CM RECOMMENDS THERAPY AT INPATIENT OR [facility] BEFORE GOING HOME. PT REPORTS HE IS NOT STAYING ANYWHERE FOR REHAB FOR 7 TO 20 DAYS. PT STATES HE IS NOT GOING TO A NURSING FACILITY UNTIL HE CANNOT TAKE CARE OF HIMSELF AT HOME ANY LONGER. PT REPORTS HIS APARTMENT IS NOW READY TO MOVE INTO AND HE WANTS TO GO HOME. PT REPORTS THE HOUSING AUTHORITY IS MOVING HIS BELONGINGS TO THE REMODELED APARTMENT FOR HIM. CM DISCUSSED VEST FOR HOME THERAPY. PT STATES HE HAS ONLY WORN IT THREE TIMES HERE AND DOES NOT WANT CM TO SET IT UP NOW. PT STATES THAT HE WILL THINK ABOUT IT AND LET DR. GRIFFITHS KNOW IN TWO WEEKS IF PT FEELS LIKE HE NEEDS IT. CM DISCUSSED HOME HEALTH AND HOME BOUND STATUS FOR HOME HEALTH SERVICES. PT STATES HE IS NOT HOME BOUND AND IS NOT GOING TO STOP LEAVING HIS APARTMENT TO GO FISHING. PT DENIES DISCHARGE NEEDS. PT REPORTS HIS BROTHER WILL PICK HIM UP TO TRANSPORT HOME AT DISCHARGE. PT STATES HE WANTS TO GO HOME TODAY IMPORTANT MESSAGE FROM MEDICARE PROVIDED AND EXPLAINED. PT REPORTS HAVING NEBULIZER AT HOME AND HOME OXYGEN ALREADY. PT DENIES NEED OF FURTHER MEDICAL EQUIPMENT. CM NOTIFIED BEDSIDE NURSE. PT DECLINES REHAB PLACEMENT. PT REFUSES VEST TREATMENT ARRANGEMENT FOR HOME. PT DECLINES HOME HEALTH REPORTING HE IS NOT HOME BOUND. PT PLANS TO DISCHARGE HOME ALONE, FAMILY TO TRANSPORT. [facility]- Discharge Planning Updated by [email or web address]: Stanley Velásquez on 10/05/18 4:[address] Patient Name: LIDIA FLORES Encounter No: [id number] : 1945 Primary Insurance: [facility] MEDICARE SOLUTIONS Anticipated DC Date: 10-08-2018 Planned Disposition: Inpatient Rehab External Planned Provider: [facility] DCP follow-up note: CM RECEIVED ORDER FOR INPATIENT REHAB PRESCREENING. CM SPOKE TO PT IN ROOM, DISCUSSED REHAB OPTIONS, LOCATIONS AND PROVIDERS. PT WOULD LIKE TO SPEAK TO REHAB HERE FOR ADMISSION TO [facility]. PT UNDERSTANDS HE HAS MANAGED MEDICARE THAT REQUIRES PRIOR AUTORIZATION FOR SERVICES. IMPORTANT MESSAGE FROM MEDICARE PROVIDED AND EXPLAINED. CM NOTIFIED [facility]. CM WAITING ADMISSION DETERMINATION FROM [facility] INPATIENT REH[facility] WELL INSURANCE AUTHORIZATION FOR INPATIENT REHAB SERVICES. HONG Quiroz DCP- Discharge Planning Updated by [id number]: Negin Limon on 10/03/18 2:[address] Patient Name: LIDIA FLORES Admission Status: ER Accout number: [id number] Admission Date: 09-28-2018 : 1945 Admission Diagnosis:SEPSIS, UNSPECIFIED ORGANISM Attending: ROLANDO BAR Current LOS: 5 Anticipated DC Date: Planned Disposition: Primary Insurance: [facility] MEDICARE SOLUTIONS Discharge Planning Comments: CM met with patient at bedside. Patient states he lives alone and plans to return to his home at discharge. Patient was extubated earlier today. Patient denies any discharge needs at this time. Patient is just wanting to eat and having to await swallowing eval. CM will continue to monitor and assist as needed with discharge planning / needs. Big Data Analytics Lead: Negin Limon DCP- Discharge Planning Updated by [id number]: Negin Limon on 10/01/18 3:[address] CM attempted to meet with patient for intake assessment. Patient is currently on ventilator sedated and no family available. CM will continue to follow and assist as needed with discharge planning / needs. DCPIA - Discharge Planning Initial Assessment Updated by [id number]: Negin Limon on 10/03/18 3:38 pm * Is the patient Alert and Oriented? Yes * How many steps to enter\exit or inside your home? * PCP Dr. Griffiths * Pharmacy [facility] * Preadmission Environment Home Alone * ADLs Independent * List name and contact numbers for known caregivers / representatives who currently or will assist patient after discharge: Maria Elena Jackson - sister - [phone] Mariusz Mackey brother A - Denia Mccrary - [facility] - [phone] * Verbal permission to speak to the caregivers and representatives has been obtained from the patient. N/A * Community resources currently utilized None * Additional services required to return to the preadmission environment? No * Can the patient safely return to the preadmission environment? Yes * Has this patient been hospitalized within the prior 30 days at any hospital? No Coverage Notice Reviewer: [id number] Velásquez Notice Issued Date-Time: 10/05/2018 15:45 Notice Type: IM Discharge Notice Notice Delivered To: Patient Relationship to Patient: Motor And Generator Assembler Name: Delivery Method: HAND - Hand Delivered Mary Ann Days: Prior Verbal Notification: Recipient Understood Notice: Yes Recipient Signature: Yes Med Rec Note Co-signed by Attending: Coverage Notice Comment: Reviewer: [id number] Key Velásquez Notice Issued Date-Time: 10/09/2018 12:40 Notice Type: IM Discharge Notice Notice Delivered To: Patient Relationship to Patient: Motor And Generator Assembler Name: Delivery Method: HAND - Hand Delivered Mary Ann Days: Prior Verbal Notification: Recipient Understood Notice: Yes Recipient Signature: Yes Med Rec Note Co-signed by Attending: Coverage Notice Comment: Last DP export: 10/09/18 1:13 p Patient Name: LIDIA FLORES Page 12129 at 1420 All edits/amendments must be made on the electronic document DICTATION DATE: 10/09/181419 BODY TRIMMER UPHOLSTERER: SIMEON 10/09/181419 RPT#: [id number] DC DATE: STATUS: ADM IN [facility] [address] [place] [address] END OF REPORT
[2018-10-09 16:31] VITALS: BP 100/71
[2018-10-09 19:00] VITALS: BP 90/64
[2018-10-10] VITALS: BP 100/61
[2018-10-10 04:00] VITALS: BP 107/69
[2018-10-10 08:08] VITALS: BP 111/73
[2018-10-10 09:05] LABS: BASOPHILS 0 % (0-2); EOSINOPHILS 0 % (0-7); HEMATOCRIT 38.1 % (42.0-54.0); HEMOGLOBIN 12.3 g/dL (13.5-17.5); IMMATURE GRANULOCYTES 0.9 % (0-5); LYMPHOCYTES 7.6 % (15-50); MCH 28.8 pg (26.0-34.0); MCHC 32.3 g/dL (31.0-37.0); MCV 89.2 fL (80.0-100.0); MEAN PLATELET VOLUME 10.6 fL (7.4-10.4); MONOCYTES 3.5 % (2-11); PLATELET COUNT 154 10x3/uL (130-400); RBC 4.27 10x6/uL (4.20-6.10); RDW 14.3 % (11.5-14.5)
[2018-10-10 09:07] LABS: WBC 8.8 10x3/uL (4.8-10.8)
[2018-10-10 09:27] LABS: ALBUMIN 2.2 g/dL (3.4-5.0); ANION GAP 12.1 mmol/L (8-16); BILIRUBIN - TOTAL 0.36 mg/dL (0.2-1.3); CALCIUM 8.2 mg/dL (8.5-10.1); CARBON DIOXIDE 27.9 mmol/L (21.0-32.0); CREATININE - SERUM 1.3 mg/dL (0.6-1.3); PROTEIN - SERUM 5.9 g/dL (6.4-8.2)
[2018-10-10 12:02] VITALS: BP 116/65
[2018-10-10] MEDS ORDERED: PREDNISONE10 MG PO (13:30)
[2018-10-10] MEDS ORDERED: BETAPACE 80 MG80 MG PO (13:30)
--- NOTE | 2018-10-10 15:39 | MORECARE ---
CASE MANAGEMENT DISCHARGE SUMMARY PATIENT: LIDIA FLORES UNIT: [id number] ADM DATE: 09/28/18 AGE: 73 : 44 SEX: M ROOM/BED: D.5745 AUTHOR: ISMAEL,DOC PHYSICIAN: REFERRING PHYSICIAN: ROLANDO BAR MD DATE OF SERVICE: 10/10/18 Discharge Plan Patient Name: LIDIA FLORES Facility: [facility]:[place] : 1945 Planned Disposition: Home Anticipated Discharge Date: 10/09/18 Discharge Date: Expected LOS: 11 Initial Reviewer: [id number] Initial Review Date: 09/28/2018 Generated: 10/10/18 4:39 pm Comments DCP- Discharge Planning Updated by [id number]: Stanley Velásquez on 10/09/18 1:[address] Patient Name: LIDIA FLORES Encounter No: [id number] : 1945 Primary Insurance: [facility] MEDICARE SOLUTIONS Anticipated DC Date: 10-09-2018 Planned Disposition: Home DCP follow-up note: CM RECEIVED ORDERS FOR VEST THERAPY AT HOME. CM MET WITH PT IN ROOM TO DISCUSS DISCHARGE NEEDS AND PLANNING. CM DISCUSSED AVAILABILITY OF HOME HEALTH, REHAB SERVICES AND MEDICAL EQUIPMENT WELL VEST THERAPY. PT STATES HE WANTS TO DISCHARGE HOME AND DOES NOT WANT TO WAIT FOR INPATIENT REHAB ANY LONGER. CM EXPLAINED THAT INSURANCE MAY PROVIDE DETERMINATION TODAY OR TOMORROW. PT REPORTS HE IS STONG ENOUGH TO GO HOME NOW. PT REPORTS GETTING UP INDEPENDENTLY IN ROOM WITHOUT PROBLEM. CM REVIEWED THERAPY NOTES AND INFORMED PT THAT CM RECOMMENDS THERAPY AT INPATIENT OR ASSISTED BEFORE GOING HOME. PT REPORTS HE IS NOT STAYING ANYWHERE FOR REHAB FOR 7 TO 20 DAYS. PT STATES HE IS NOT GOING TO A NURSING FACILITY UNTIL HE CANNOT TAKE CARE OF HIMSELF AT HOME ANY LONGER. PT REPORTS HIS APARTMENT IS NOW READY TO MOVE INTO AND HE WANTS TO GO HOME. PT REPORTS THE HOUSING AUTHORITY IS MOVING HIS BELONGINGS TO THE REMODELED APARTMENT FOR HIM. CM DISCUSSED VEST FOR HOME THERAPY. PT STATES HE HAS ONLY WORN IT THREE TIMES HERE AND DOES NOT WANT CM TO SET IT UP NOW. PT STATES THAT HE WILL THINK ABOUT IT AND LET DR. GRIFFITHS KNOW IN TWO WEEKS IF PT FEELS LIKE HE NEEDS IT. CM DISCUSSED HOME HEALTH AND HOME BOUND STATUS FOR HOME HEALTH SERVICES. PT STATES HE IS NOT HOME BOUND AND IS NOT GOING TO STOP LEAVING HIS APARTMENT TO GO FISHING. PT DENIES DISCHARGE NEEDS. PT REPORTS HIS BROTHER WILL PICK HIM UP TO TRANSPORT HOME AT DISCHARGE. PT STATES HE WANTS TO GO HOME TODAY IMPORTANT MESSAGE FROM MEDICARE PROVIDED AND EXPLAINED. PT REPORTS HAVING NEBULIZER AT HOME AND HOME OXYGEN ALREADY. PT DENIES NEED OF FURTHER MEDICAL EQUIPMENT. CM NOTIFIED BEDSIDE NURSE. PT DECLINES REHAB PLACEMENT. PT REFUSES VEST TREATMENT ARRANGEMENT FOR HOME. PT DECLINES HOME HEALTH REPORTING HE IS NOT HOME BOUND. PT PLANS TO DISCHARGE HOME ALONE, FAMILY TO TRANSPORT. [facility]- Discharge Planning Updated by [id number]: Stanley Velásquez on 10/05/18 4:[address] Patient Name: LIDIA FLORES Encounter No: [id number] : 1945 Primary Insurance: [facility] MEDICARE SOLUTIONS Anticipated DC Date: 10-08-2018 Planned Disposition: Inpatient Rehab External Planned Provider: [facility] DCP follow-up note: CM RECEIVED ORDER FOR INPATIENT REHAB PRESCREENING. CM SPOKE TO PT IN ROOM, DISCUSSED REHAB OPTIONS, LOCATIONS AND PROVIDERS. PT WOULD LIKE TO SPEAK TO REHAB HERE FOR ADMISSION TO [facility]. PT UNDERSTANDS HE HAS MANAGED MEDICARE THAT REQUIRES PRIOR AUTORIZATION FOR SERVICES. IMPORTANT MESSAGE FROM MEDICARE PROVIDED AND EXPLAINED. CM NOTIFIED [facility]. CM WAITING ADMISSION DETERMINATION FROM [facility] INPAT[facility] REH[facility] WELL INSURANCE AUTHORIZATION FOR INPATIENT REHAB SERVICES. HONG Quiroz DCP- Discharge Planning Updated by [id number]: Negin Limon on 10/03/18 2:[address] Patient Name: LIDIA FLORES Admission Status: ER Accout number: [id number] Admission Date: 09-28-2018 : 1945 Admission Diagnosis:SEPSIS, UNSPECIFIED ORGANISM Attending: ROLANDO BAR Current LOS: 5 Anticipated DC Date: Planned Disposition: Primary Insurance: [facility] MEDICARE SOLUTIONS Discharge Planning Comments: CM met with patient at bedside. Patient states he lives alone and plans to return to his home at discharge. Patient was extubated earlier today. Patient denies any discharge needs at this time. Patient is just wanting to eat and having to await swallowing eval. CM will continue to monitor and assist as needed with discharge planning / needs. Graduate Civil Engineer: Negin Limon DCP- Discharge Planning Updated by [email or web address]: Negin Limon on 10/01/18 3:[address] CM attempted to meet with patient for intake assessment. Patient is currently on ventilator sedated and no family available. CM will continue to follow and assist as needed with discharge planning / needs. DCPIA - Discharge Planning Initial Assessment Updated by [id number]: Negin Limon on 10/03/18 3:38 pm * Is the patient Alert and Oriented? Yes * How many steps to enter\exit or inside your home? * PCP Dr. Griffiths * Pharmacy [facility] * Preadmission Environment Home Alone * ADLs Independent * List name and contact numbers for known caregivers / representatives who currently or will assist patient after discharge: Maria Elena Jackson - sister - [phone] Mariusz Mackey brother A - Denia Mccrary [facility] - [phone] * Verbal permission to speak to the caregivers and representatives has been obtained from the patient. N/A * Community resources currently utilized None * Additional services required to return to the preadmission environment? No * Can the patient safely return to the preadmission environment? Yes * Has this patient been hospitalized within the prior 30 days at any hospital? No External Providers External Provider: [facility] Next Contact Date: 10/10/2018 Service Request Date: Service Type: Resolution: Reviewer: Comments: Coverage Notice Reviewer: [id number] Key Velásquez Notice Issued Date-Time: 10/05/2018 15:45 Notice Type: IM Discharge Notice Notice Delivered To: Patient Relationship to Patient: Manager Business Continuity Name: Delivery Method: HAND - Hand Delivered Mary Ann Days: Prior Verbal Notification: Recipient Understood Notice: Yes Recipient Signature: Yes Med Rec Note Co-signed by Attending: Coverage Notice Comment: Reviewer: [id number] Key Velásquez Notice Issued Date-Time: 10/09/2018 12:40 Notice Type: IM Discharge Notice Notice Delivered To: Patient Relationship to Patient: Manager Business Continuity Name: Delivery Method: HAND - Hand Delivered Mary Ann Days: Prior Verbal Notification: Recipient Understood Notice: Yes Recipient Signature: Yes Med Rec Note Co-signed by Attending: Coverage Notice Comment: Last DP export: 10/09/18 1:20 p Patient Name: LIDIA FLORES Page [id number] at 1539 All edits/amendments must be made on the electronic document DICTATION DATE: 10/10/181537 PHARMACY TECHNICIAN PROGRAM DIRECTOR: SIMEON 10/10/181537 RPT#: [id number] DC DATE: STATUS: ADM IN [facility] [address] [place] [address] END OF REPORT
--- NOTE | 2018-10-10 15:49 | MORECARE ---
CASE MANAGEMENT DISCHARGE SUMMARY PATIENT: LIDIA FLORES UNIT: [id number] ADM DATE: 09/28/18 AGE: 73 : 43 SEX: M ROOM/BED: D.2115 AUTHOR: ISMAEL,DOC PHYSICIAN: REFERRING PHYSICIAN: ROLANDO BAR MD DATE OF SERVICE: 10/10/18 Discharge Plan Patient Name: LIDIA FLORES Facility: [facility]:[place] : 1945 Planned Disposition: Home with Home Health Anticipated Discharge Date: 10/09/18 Discharge Date: Expected LOS: 11 Initial Reviewer: [id number] Initial Review Date: 09/28/2018 Generated: 10/10/18 4:49 pm Comments DCP- Discharge Planning Updated by [id number]: Stanley Velásquez on 10/09/18 1:[address] Patient Name: LIDIA FLORES Encounter No: [id number] : 1945 Primary Insurance: [facility] MEDICARE SOLUTIONS Anticipated DC Date: 10-09-2018 Planned Disposition: Home DCP follow-up note: CM RECEIVED ORDERS FOR VEST THERAPY AT HOME. CM MET WITH PT IN ROOM TO DISCUSS DISCHARGE NEEDS AND PLANNING. CM DISCUSSED AVAILABILITY OF HOME HEALTH, REHAB SERVICES AND MEDICAL EQUIPMENT WELL VEST THERAPY. PT STATES HE WANTS TO DISCHARGE HOME AND DOES NOT WANT TO WAIT FOR INPATIENT REHAB ANY LONGER. CM EXPLAINED THAT INSURANCE MAY PROVIDE DETERMINATION TODAY OR TOMORROW. PT REPORTS HE IS STONG ENOUGH TO GO HOME NOW. PT REPORTS GETTING UP INDEPENDENTLY IN ROOM WITHOUT PROBLEM. CM REVIEWED THERAPY NOTES AND INFORMED PT THAT CM RECOMMENDS THERAPY AT INPATIENT OR [facility] BEFORE GOING HOME. PT REPORTS HE IS NOT STAYING ANYWHERE FOR REHAB FOR 7 TO 20 DAYS. PT STATES HE IS NOT GOING TO A NURSING FACILITY UNTIL HE CANNOT TAKE CARE OF HIMSELF AT HOME ANY LONGER. PT REPORTS HIS APARTMENT IS NOW READY TO MOVE INTO AND HE WANTS TO GO HOME. PT REPORTS THE HOUSING AUTHORITY IS MOVING HIS BELONGINGS TO THE REMODELED APARTMENT FOR HIM. CM DISCUSSED VEST FOR HOME THERAPY. PT STATES HE HAS ONLY WORN IT THREE TIMES HERE AND DOES NOT WANT CM TO SET IT UP NOW. PT STATES THAT HE WILL THINK ABOUT IT AND LET DR. GRIFFITHS KNOW IN TWO WEEKS IF PT FEELS LIKE HE NEEDS IT. CM DISCUSSED HOME HEALTH AND HOME BOUND STATUS FOR HOME HEALTH SERVICES. PT STATES HE IS NOT HOME BOUND AND IS NOT GOING TO STOP LEAVING HIS APARTMENT TO GO FISHING. PT DENIES DISCHARGE NEEDS. PT REPORTS HIS BROTHER WILL PICK HIM UP TO TRANSPORT HOME AT DISCHARGE. PT STATES HE WANTS TO GO HOME TODAY IMPORTANT MESSAGE FROM MEDICARE PROVIDED AND EXPLAINED. PT REPORTS HAVING NEBULIZER AT HOME AND HOME OXYGEN ALREADY. PT DENIES NEED OF FURTHER MEDICAL EQUIPMENT. CM NOTIFIED BEDSIDE NURSE. PT DECLINES REHAB PLACEMENT. PT REFUSES VEST TREATMENT ARRANGEMENT FOR HOME. PT DECLINES HOME HEALTH REPORTING HE IS NOT HOME BOUND. PT PLANS TO DISCHARGE HOME ALONE, FAMILY TO TRANSPORT. Stanley VelásquezHONG DCP- Discharge Planning Updated by [id number]: Stanley Velásquez on 10/05/18 4:[address] Patient Name: LIDIA FLORES Encounter No: [id number] : 1945 Primary Insurance: [facility] MEDICARE SOLUTIONS Anticipated DC Date: 10-08-2018 Planned Disposition: Inpatient Rehab External Planned Provider: [facility] DCP follow-up note: CM RECEIVED ORDER FOR INPATIENT REHAB PRESCREENING. CM SPOKE TO PT IN ROOM, DISCUSSED REHAB OPTIONS, LOCATIONS AND PROVIDERS. PT WOULD LIKE TO SPEAK TO REHAB HERE FOR ADMISSION TO [facility]. PT UNDERSTANDS HE HAS MANAGED MEDICARE THAT REQUIRES PRIOR AUTORIZATION FOR SERVICES. IMPORTANT MESSAGE FROM MEDICARE PROVIDED AND EXPLAINED. CM NOTIFIED [facility] OF [facility]. CM WAITING ADMISSION DETERMINATION FROM [facility] WELL INSURANCE AUTHORIZATION FOR INPATIENT REHAB SERVICES. Stanley VelásquezHONG DCP- Discharge Planning Updated by [id number]: Negin Limon on 10/03/18 2:[address] Patient Name: LIDIA FLORES Admission Status: ER Accout number: [id number] Admission Date: 09-28-2018 : 1945 Admission Diagnosis:SEPSIS, UNSPECIFIED ORGANISM Attending: ROLANDO BAR Current LOS: 5 Anticipated DC Date: Planned Disposition: Primary Insurance: [facility] MEDICARE SOLUTIONS Discharge Planning Comments: CM met with patient at bedside. Patient states he lives alone and plans to return to his home at discharge. Patient was extubated earlier today. Patient denies any discharge needs at this time. Patient is just wanting to eat and having to await swallowing eval. CM will continue to monitor and assist as needed with discharge planning / needs. Radiation Safety Officer: Negin Limon DCP- Discharge Planning Updated by [email or web address]: Negin Limon on 10/01/18 3:[address] CM attempted to meet with patient for intake assessment. Patient is currently on ventilator sedated and no family available. CM will continue to follow and assist as needed with discharge planning / needs. DCPIA - Discharge Planning Initial Assessment Updated by [id number]: Negin Limon on 10/03/18 3:38 pm * Is the patient Alert and Oriented? Yes * How many steps to enter\exit or inside your home? * PCP Dr. Griffiths * Pharmacy [facility] * Preadmission Environment Home Alone * ADLs Independent * List name and contact numbers for known caregivers / representatives who currently or will assist patient after discharge: Maria Elena Jackson - sister - [phone] Mariusz Mackey brother [facility] - Denia Mccrary [facility] - [phone] * Verbal permission to speak to the caregivers and representatives has been obtained from the patient. N/A * Community resources currently utilized None * Additional services required to return to the preadmission environment? No * Can the patient safely return to the preadmission environment? Yes * Has this patient been hospitalized within the prior 30 days at any hospital? No Coverage Notice Reviewer: [id number] Key Velásquez Notice Issued Date-Time: 10/05/2018 15:45 Notice Type: IM Discharge Notice Notice Delivered To: Patient Relationship to Patient: [employer]ent [employer] Manager Name: Delivery Method: HAND - Hand Delivered Mary Ann Days: Prior Verbal Notification: Recipient Understood Notice: Yes Recipient Signature: Yes Med Rec Note Co-signed by Attending: Coverage Notice Comment: Reviewer: [id number] Key Velásquez Notice Issued Date-Time: 10/09/2018 12:40 Notice Type: IM Discharge Notice Notice Delivered To: Patient Relationship to Patient: [employer] Manager Name: Delivery Method: HAND - Hand Delivered Mary Ann Days: Prior Verbal Notification: Recipient Understood Notice: Yes Recipient Signature: Yes Med Rec Note Co-signed by Attending: Coverage Notice Comment: Last DP export: 10/10/18 2:39 p Patient Name: LIDAI FLORES Page [id number] at 1549 All edits/amendments must be made on the electronic document DICTATION DATE: 10/10/18 154 ROCK CUTTER: SIMEON 10/10/181548 RPT#: [id number] DC DATE: STATUS: ADM IN [facility] [address] [place] [address] END OF REPORT
--- NOTE | 2018-10-10 16:05 | MORECARE ---
CASE MANAGEMENT DISCHARGE SUMMARY PATIENT: LIDIA FLORES UNIT: [id number] ADM DATE: 09/28/18 AGE: 73 : 44 SEX: M ROOM/BED: D.6705 AUTHOR: DIETER GUEVARA PHYSICIAN: REFERRING PHYSICIAN: ROLANDO BAR MD DATE OF SERVICE: 10/10/18 Discharge Plan Patient Name: LIDIA FLORES Facility: [facility]:[place] : 1945 Planned Disposition: Home with Home Health Anticipated Discharge Date: 10/09/18 Discharge Date: Expected LOS: 11 Initial Reviewer: [email or web address] Initial Review Date: 09/28/2018 Generated: 10/10/18 5:05 pm Comments DCP- Discharge Planning Updated by [id number]: Stanley Velásquez on 10/10/18 2:[address] Patient Name: LIDIA FLORES Encounter No: [id number] : 1945 Primary Insurance: [facility] MEDICARE SOLUTIONS Anticipated DC Date: 10-09-2018 Planned Disposition: Home with Home Health External Planned Provider: [facility] DCP follow-up note: CM RECEIVED REQUEST TO MEET WITH PT AND NIIMELDA IN ROOM. CM MET WITH THEM TO DISCUSS DISCHARGE PLANNING AND NEEDS. PT INFORMED CM THAT IT IS OK TO SHARE TREATMENT AND DISCHARGE PLANNING INFORMATION WITH WON. WON INFORMED CM THAT PT IS NOT ABLE TO READ OR WRITE. CM INFORMED HER OF WAITING INSURANCE DETERMINATION FOR REHAB PLACEMENT, PT'S REFUSAL OF LONGTERM, HOME HEALTH AND MEDICAL EQUIPMENT. WON DISCUSSED THIS WITH PT, PT WILL ACCEPT HOME HEALTH IF DECLINED BY REHAB. CHOICE FOR [facility] SIGNED. CM SPOKE TO L[facility] OF INPATIENT REHAB, THEY HAVE NOT RECEIVED AUTHORIATION OR DENIAL FOR REHAB AT THIS TIME, THEY CAN CONTACT PT AT HOME AND ADMIT IF PT IS APPROVED. DISCHARGE ORDER RECEIVED. CM SPOKE TO JARRED PAZ WHO INFORMED CM THAT DR. GARVIN CAN FOLLOW FOR HOME HEALTH. CM SPOKE TO PT AND MONIKA IN ROOM, INFORMED HER OF NO DETERMINATION FOR INPATIENT AND ABILITY TO ARRANGE HOME HEALTH. DR. GARVIN WILL ONLY SIGN ORDERS FOR ONE MONTH PER KAYLIE OF [facility] WHO CALLED DR. LARSON OFFICE. PT WILL NEED NEW PRIMARY CARE DOCTOR. CM WENT OVER THERAPY NOTES WITH PT AND NIECE; PT'S NIECE INFORMED CM THAT PT IS NOT GOING TO BE APPROVED FOR REHAB HE IS DOING TOO WELL PHYSICALLY AT THIS TIME, PT WILL GO HOME WITH HOME HEALTH AND SHE WILL ASSIST PT WITH FINDING ANOTHER DOCTOR. CONTACT INFORMATION FOR FAMILY PROVIDED: BROTHER, SHEMAR FLORES, AYAZ UPTONECE, . CM CALLED [facility], , PROVIDED REFERRAL INFORMATION TO KAYLIE WHO ACCEPTED PT. CM FAXED DISCHARGE INFORMATION TO [facility] AT [phone]. BEDSIDE NURSE NOTIFIED. Stanley Velásquez, CASE MANAGEMENT DCP- Discharge Planning Updated by [id number]: Stanley Velásquez on 10/09/18 1:[address] Patient Name: LIDIA FLORES Encounter No: [id number] : 1945 Primary Insurance: [facility] MEDICARE SOLUTIONS Anticipated DC Date: 10-09-2018 Planned Disposition: Home DCP follow-up note: CM RECEIVED ORDERS FOR VEST THERAPY AT HOME. CM MET WITH PT IN ROOM TO DISCUSS DISCHARGE NEEDS AND PLANNING. CM DISCUSSED AVAILABILITY OF HOME HEALTH, REHAB SERVICES AND MEDICAL EQUIPMENT WELL VEST THERAPY. PT STATES HE WANTS TO DISCHARGE HOME AND DOES NOT WANT TO WAIT FOR INPATIENT REHAB ANY LONGER. CM EXPLAINED THAT INSURANCE MAY PROVIDE DETERMINATION TODAY OR TOMORROW. PT REPORTS HE IS STONG ENOUGH TO GO HOME NOW. PT REPORTS GETTING UP INDEPENDENTLY IN ROOM WITHOUT PROBLEM. CM REVIEWED THERAPY NOTES AND INFORMED PT THAT CM RECOMMENDS THERAPY AT INPATIENT OR LONGTERM BEFORE GOING HOME. PT REPORTS HE IS NOT STAYING ANYWHERE FOR REHAB FOR 7 TO 20 DAYS. PT STATES HE IS NOT GOING TO A NURSING FACILITY UNTIL HE CANNOT TAKE CARE OF HIMSELF AT HOME ANY LONGER. PT REPORTS HIS APARTMENT IS NOW READY TO MOVE INTO AND HE WANTS TO GO HOME. PT REPORTS THE HOUSING AUTHORITY IS MOVING HIS BELONGINGS TO THE REMODELED APARTMENT FOR HIM. CM DISCUSSED VEST FOR HOME THERAPY. PT STATES HE HAS ONLY WORN IT THREE TIMES HERE AND DOES NOT WANT CM TO SET IT UP NOW. PT STATES THAT HE WILL THINK ABOUT IT AND LET DR. GRIFFITHS KNOW IN TWO WEEKS IF PT FEELS LIKE HE NEEDS IT. CM DISCUSSED HOME HEALTH AND HOME BOUND STATUS FOR HOME HEALTH SERVICES. PT STATES HE IS NOT HOME BOUND AND IS NOT GOING TO STOP LEAVING HIS APARTMENT TO GO FISHING. PT DENIES DISCHARGE NEEDS. PT REPORTS HIS BROTHER WILL PICK HIM UP TO TRANSPORT HOME AT DISCHARGE. PT STATES HE WANTS TO GO HOME TODAY IMPORTANT MESSAGE FROM MEDICARE PROVIDED AND EXPLAINED. PT REPORTS HAVING NEBULIZER AT HOME AND HOME OXYGEN ALREADY. PT DENIES NEED OF FURTHER MEDICAL EQUIPMENT. CM NOTIFIED BEDSIDE NURSE. PT DECLINES REHAB PLACEMENT. PT REFUSES VEST TREATMENT ARRANGEMENT FOR HOME. PT DECLINES HOME HEALTH REPORTING HE IS NOT HOME BOUND. PT PLANS TO DISCHARGE HOME ALONE, FAMILY TO TRANSPORT. Stanley HONG Velásquez DCP- Discharge Planning Updated by [id number]: Stanley Velásquez on 10/05/18 4:[address] Patient Name: LIDIA FLORES Encounter No: [id number] : 1945 Primary Insurance: [facility] MEDICARE SOLUTIONS Anticipated DC Date: 10-08-2018 Planned Disposition: Inpatient Rehab External Planned Provider: [facility] DCP follow-up note: CM RECEIVED ORDER FOR INPATIENT REHAB PRESCREENING. CM SPOKE TO PT IN ROOM, DISCUSSED REHAB OPTIONS, LOCATIONS AND PROVIDERS. PT WOULD LIKE TO SPEAK TO REHAB HERE FOR ADMISSION TO [facility]. PT UNDERSTANDS HE HAS MANAGED MEDICARE THAT REQUIRES PRIOR AUTORIZATION FOR SERVICES. IMPORTANT MESSAGE FROM MEDICARE PROVIDED AND EXPLAINED. CM NOTIFIED [facility] OF [facility]. CM WAITING ADMISSION DETERMINATION FROM [facility] WELL INSURANCE AUTHORIZATION FOR INPATIENT REHAB SERVICES. HONG Quiroz DCP- Discharge Planning Updated by [id number]: Negin Limon on 10/03/18 2:[address] Patient Name: LIDIA FLORES Admission Status: ER Accout number: [id number] Admission Date: 09-28-2018 : 1945 Admission Diagnosis:SEPSIS, UNSPECIFIED ORGANISM Attending: ROLANDO ABR Current LOS: 5 Anticipated DC Date: Planned Disposition: Primary Insurance: [facility] MEDICARE SOLUTIONS Discharge Planning Comments: CM met with patient at bedside. Patient states he lives alone and plans to return to his home at discharge. Patient was extubated earlier today. Patient denies any discharge needs at this time. Patient is just wanting to eat and having to await swallowing eval. CM will continue to monitor and assist as needed with discharge planning / needs. Behavioral Sciences Department Chair: Negin Limon DCP- Discharge Planning Updated by [id number]: Negin Yehr on 10/01/18 3:[address] CM attempted to meet with patient for intake assessment. Patient is currently on ventilator sedated and no family available. CM will continue to follow and assist as needed with discharge planning / needs. DCPIA - Discharge Planning Initial Assessment Updated by [id number]: Negin Limon on 10/03/18 3:38 pm * Is the patient Alert and Oriented? Yes * How many steps to enter\exit or inside your home? * PCP Dr. Griffiths * Pharmacy [facility] * Preadmission Environment Home Alone * ADLs Independent * List name and contact numbers for known caregivers / representatives who currently or will assist patient after discharge: Maria Elena Jackson - sister - [phone] Mariusz barrios A - Denia peñaloza - [phone] * Verbal permission to speak to the caregivers and representatives has been obtained from the patient. N/A * Community resources currently utilized None * Additional services required to return to the preadmission environment? No * Can the patient safely return to the preadmission environment? Yes * Has this patient been hospitalized within the prior 30 days at any hospital? No Coverage Notice Reviewer: [id number] Velásquez Notice Issued Date-Time: 10/05/2018 15:45 Notice Type: IM Discharge Notice Notice Delivered To: Patient Relationship to Patient: Inbound Customer Service Agent Name: Delivery Method: HAND - Hand Delivered Mary Ann Days: Prior Verbal Notification: Recipient Understood Notice: Yes Recipient Signature: Yes Med Rec Note Co-signed by Attending: Coverage Notice Comment: Reviewer: ALICE Velásquez Notice Issued Date-Time: 10/09/2018 12:40 Notice Type: IM Discharge Notice Notice Delivered To: Patient Relationship to Patient: Inbound Customer Service Agent Name: Delivery Method: HAND - Hand Delivered Mary Ann Days: Prior Verbal Notification: Recipient Understood Notice: Yes Recipient Signature: Yes Med Rec Note Co-signed by Attending: Coverage Notice Comment: Reviewer: ALICE Velásquez Notice Issued Date-Time: 10/10/2018 15:30 Notice Type: Patient Choice Letter Notice Delivered To: Patient Relationship to Patient: Inbound Customer Service Agent Name: Delivery Method: HAND - Hand Delivered Mary Ann Days: Prior Verbal Notification: Recipient Understood Notice: Yes Recipient Signature: Yes Med Rec Note Co-signed by Attending: Coverage Notice Comment: [facility] Last DP export: 10/10/18 2:49 p Patient Name: LIDIA FLORES Page [id number] at 1605 All edits/amendments must be made on the electronic document DICTATION DATE: 10/10/18 160 PAYROLL ASSOCIATE: SIMEON 10/10/181604 RPT#: [id number] DC DATE: STATUS: ADM IN [facility] [address] [place] [address] END OF REPORT
[2018-10-10 16:14] VITALS: BP 111/79
== END 2018-10-10 18:00 | disposition home health service (06) | DRG 870 ==
LOC: D.ER 10:47 → EDBD 12:46 → D.ICU 12:46 → D.M2 12:46 → D.EDHOLD 12:46 → D.M2 15:38 → D.ICU 09-29 05:30 → D.M2 10-04 10:05
PROVIDERS: Family Medicine; Internal Medicine Nephrology; Internal Medicine Pulmonary Disease; ADMIT Family Medicine
PROC: 5A1955Z Respiratory Ventilation, Greater than 96 Consecutive Hours (ICD-10-PCS; principal; 2018-09-29)
PROC: 0BH17EZ Insertion of Endotracheal Airway into Trachea, Via Natural or Artificial Opening (ICD-10-PCS; 2018-09-29)
PROC: 0B928ZZ Drainage of Carina, Via Natural or Artificial Opening Endoscopic (ICD-10-PCS; 2018-10-03)
PROC: 0B948ZZ Drainage of Right Upper Lobe Bronchus, Via Natural or Artificial Opening Endoscopic (ICD-10-PCS; 2018-10-03)
PROC: 0B988ZZ Drainage of Left Upper Lobe Bronchus, Via Natural or Artificial Opening Endoscopic (ICD-10-PCS; 2018-10-03)
PROC: 0B918ZZ Drainage of Trachea, Via Natural or Artificial Opening Endoscopic (ICD-10-PCS; 2018-10-03)
PROC: 0B958ZZ Drainage of Right Middle Lobe Bronchus, Via Natural or Artificial Opening Endoscopic (ICD-10-PCS; 2018-10-03)
PROC: 0B938ZZ Drainage of Right Main Bronchus, Via Natural or Artificial Opening Endoscopic (ICD-10-PCS; 2018-10-03)
PROC: 0B978ZZ Drainage of Left Main Bronchus, Via Natural or Artificial Opening Endoscopic (ICD-10-PCS; 2018-10-03)
PROC: 0B968ZZ Drainage of Right Lower Lobe Bronchus, Via Natural or Artificial Opening Endoscopic (ICD-10-PCS; 2018-10-03)
PROC: 0B9B8ZZ Drainage of Left Lower Lobe Bronchus, Via Natural or Artificial Opening Endoscopic (ICD-10-PCS; 2018-10-03)
PROC: 0B998ZZ Drainage of Lingula Bronchus, Via Natural or Artificial Opening Endoscopic (ICD-10-PCS; 2018-10-03)
DX: A41.9 Sepsis, unspecified organism (principal); J96.21 Acute and chronic respiratory failure with hypoxia; J96.22 Acute and chronic respiratory failure with hypercapnia; J15.6 Pneumonia due to other Gram-negative bacteria; J13 Pneumonia due to Streptococcus pneumoniae; I50.23 Acute on chronic systolic (congestive) heart failure; E87.2 Acidosis; N17.9 Acute kidney failure, unspecified; J47.0 Bronchiectasis with acute lower respiratory infection; F17.213 Nicotine dependence, cigarettes, with withdrawal; R00.0 Tachycardia, unspecified; R91.1 Solitary pulmonary nodule; D72.829 Elevated white blood cell count, unspecified

== ENCOUNTER → 2018-10-23 18:19 | Outpatient (CLI) | payer MEDICARE, MEDICAID ==
[2018-09-29 11:40] VITALS: BMI 30.1
[~2018-10-23 18:19] MED LIST: BETAPACE 80 MG80 MG PO; PREDNISONE10 MG PO; [UNRECOGNIZED DRUG - REMARK]
[2018-10-25 09:19] LABS: HCV AB <0.1 (0.0-0.9)
== END | disposition home or self-care (01) ==
LOC: D.LABREF 18:19
PROVIDERS: Emergency Medicine
DX: Z20.9 Contact with and (suspected) exposure to unspecified communicable disease (principal); W46.1XXA Contact with contaminated hypodermic needle, initial encounter

== ENCOUNTER 2018-12-12 19:21 | Observation (INO) | payer MEDICARE, MEDICAID ==
[~2018-12-12] VITALS: Ht 160 cm; Wt 72.5 kg
--- NOTE | ~2018-12-12 | HEMODYNAMI ---
PATIENT:LIDIA FLORES MEDICAL RECORD: [id number] : 43 LOCATION:[place] [address] ADMISSION DATE: 12/12/18 Generatedon:12/13/201814:43 Patient name: LIDIA FLORES Patient #: [id number] SSN: D OB: 1945 Date of study: 12/13/2018 Page: Of Hemodynamic Procedure Report Patient Data Patient Demographics Procedure consent was obtained First Name: LIDIA Gender: Male Last Name: SANDRA : 1945 Patient #: [id number] Age: 73 year(s) Race: Black Additional ID: [id number] Contact details Address: [address] [place] [address] State: [place] City: [facility] Zip code: [address] Past Medical History Allergies: No known allergies Admission Admission Data Admission Date: 12/12/2018 Admission Time: 21:10 Room #: [facility] Height (in.): 63 BSA: 1.76 (m2) Height (cm.): 160.02 BMI: 28.31 (kg/m2) Weight (lbs.): 159.84 Weight (kg.): 72.5 Lab Results Lab Result Date: 12/13/2018 Lab Result Time: 0:00 Biochemistry Name Units Result Min Max BUN mg/dl 22 --(----)-* 7 18 Creatinine mg/dl 1.7 --(----)-* 0.6 1.3 CBC Name Units Result Min Max Hematocrit % 38.3 *-(----)-- 42 54 Hemoglobin g/dl 11.8 *-(----)-- 13.5 17.5 Procedure Procedure Types Cath Procedure Diagnostic Procedure [facility] w/Coronaries Procedure Description Procedure Date Procedure Date: 12/13/2018 Procedure Start Time: 14:32 Procedure End Time: 14:40 Procedure Staff Name Function Diaz Flores MD Performing Physician Benita Stokes RN Nurse Chelle Crook RT Monitor Roxanne Andersen RT Scrub Procedure Data Cath Procedure Fluoroscopy Diagnostic fluoroscopy Total fluoroscopy Time: 1 time: 1 min min Diagnostic fluoroscopy Total fluoroscopy dose: 221 dose: 221 mGy mGy Contrast Material Contrast Material Type Amount (ml) Isovue 300 43 Entry Location Entry Primary Successful Side Size Upsize Upsize Entry Closure Succes sful Closure Location (Fr) 1 (Fr) 2 (Fr) Remarks Device Remarks Femoral Right 5 Fr Exoseal artery Estimated blood loss: 5 ml Diagnostic catheters Device Type Used For End Catheter Placement MULTIPACK JL 4.0 5Fr Procedure catheter MULTIPACK 3DRC 5Fr Procedure catheter MULTIPACK Pigtail 5 Fr Procedure catheter Procedure Complications No complications Procedure Medications Medication Administration Route Dosage 0.9% NaCl I.V. 100 ml/hr Oxygen etCO2 Nasal cannula 2 l/min Lidocaine 2% added to field 20 Heparin Flush Bag added to field 2 bags (1000units/500ml NS) Versed I.V. 2 mg Fentanyl I.V. 50 mcg Hemodynamics Rest BSA: 1.76 (m2) O2 Consumption: Estimated: 221.09 (ml/min) O2 Consumption indexed : Estimated:125.62 (ml/min/m) Heart Rate: 98 (bpm) Pressure Samples Time Site Value (mmHg) Purpose Heart Use Rate(bpm) 14:36 LV 80/11,12 Snapshot 96 14:36 LV 80/11,12 Snapshot 96 Gradients Valve Time Site Site Mean SEP/DFP Peak To Heart Use 1 2 (mmHg) (sec/min) Peak Rate (mmHg) (bpm) Aortic 14:36 LV AO 96 Snapshots Pre Cath Intra NCS Post Cath Vital Signs Time Heart Resp SPO2 etCO2 NIBP Rhythm Pain Sedation Rate (ipm) (%) (mmHg) (mmHg) Status Level (bpm) 14:21:26 99 16 96 8.2 100/79(87) NSR 0 (11) 10(A) , No pain 14:25:29 97 18 97 16.5 95/68(81) NSR 0 (11) 10(A) , No pain 14:29:31 96 17 97 17.3 90/71(78) NSR 0 (11) 10(A) , No pain 14:33:33 96 16 98 19.5 95/71(79) NSR 0 (11) 10(A) , No pain 14:37:36 96 16 99 12 90/68(82) NSR 0 (11) 10(A) , No pain Medications Time Medication Route Dose Verified Delivered Reason Notes Eff ectiveness by by 14:20:37 0.9% NaCl I.V. 100 Diaz Benita used for ml/hr [facility] procedure MD PEREZ 14:20:44 Oxygen etCO2 2 Diaz Benita used for Nasal l/min [facility] procedure cannula MD PEREZ 14:20:50 Lidocaine 2% added 20ml Diaz Perales for local to vial [facility] anesthetic field MD CAT 14:20:55 Heparin Flush added 2 Diaz Diaz used for Bag to bags [facility] procedure (1000units/500ml field MD CAT NS) 14:32:42 Versed I.V. 2 mg Diaz Benita for [place] sedation MD PEREZ 14:32:47 Fentanyl I.V. 50 Diaz Benita for mcg [place] sedation MD PEREZcam milling machine operator Log Time Note 13:55:58 Signed procedure consent form obtained from patient. 13:56:00 Diagnostic Cath status Elective 13:56:01 Time tracking: Regular hours (M-F 7:00 - 5:00) 13:56:05 Plan of Care:Hemodynamics will remain stable., Cardiac rhythm will remain stable., Comfort level will be maintained., Respiratory function will remain adequate., Patient/ family verbilizes understanding of procedure., Procedure tolerated without complication., Recovers from procedure without complications.. 13:56:18 Patient allergic to No known allergies 13:57:03 Lab Result : BUN 22 mg/dl 13:57:03 Lab Result : Hemoglobin 11.8 g/dl 13:57:03 Lab Result : Creatinine 1.7 mg/dl 13:57:03 Lab Result : Hematocrit 38.3 % 13:57:11 Patient Height : 63 inches 13:57:15 Patient Weight : 159.84 lbs 13:59:58 Procedure type changed to Cath procedure, Diagnostic procedure, LHC, LHC w/Coronaries 14:00:26 Roxanne Andersen RT(R) sent for patient. Start room use. 14:12:02 Patient received from Med II to CCL 1 Alert and oriented. Tansferred to table in Supine position. 14:12:03 Warm blankets applied, and lubna hugger turned on for patient comfort. 14:12:04 Correct patient and procedure confirmed by team. 14:12:04 ECG and BP/O2 sat monitors applied to patient. 14:13:39 ----Pre-sedation anethsthesia assessment.---- 14:13:40 Snore? Yes 14:13:42 Sleep apnea? Yes 14:13:45 Deviated septum? No 14:13:47 Opens mouth fully? Yes 14:13:49 Sticks out tongue? Yes 14:14:10 Airway obstruction? Yes copd 14:14:30 Dentures? Yes ? 14:15:13 Patient diabetic? Yes. 14:15:35 If diabetic: On Metformin? No 14:15:49 Is the patient allergic to Iodine/contrast media? No. 14:15:53 Is patient on blood thinner?No 14:17:52 IV patent on arrival in left forearm with 0.9% NaCl at 100ml/hr. 14:20:25 Vital chart was started 14:20:37 0.9% NaCl 100 ml/hr I.V. was administered by Benita Stokes RN; used for procedure; 14:20:44 Oxygen 2 l/min etCO2 Nasal cannula was administered by Benita Stokes RN; used for procedure; 14:20:50 Lidocaine 2% 20ml vial added to field was administered by Diaz Flores MD; for local anesthetic; 14:20:55 Heparin Flush Bag (1000units/500ml NS) 2 bags added to field was administered by Diaz Flores MD; used for procedure; 14:23:04 Pre procedure: right dorsailis pedis pulse Doppler 14:23:06 Patient pain scale 0/10 ?. 14:23:11 Lab results completed and on chart. 14:23:15 Right groin area was prepped with chlora-prep and draped in sterile fashion 14:23:16 Alarms reviewed by R. N. 14:23:17 Sharps counted by scrub and verified by R.N. 14:23:21 Baseline sample Acquired. 14:23:24 Rhythm: sinus rhythm 14:23:26 Full Disclosure recording started 14:23:29 Pre-procedure instructions explained to patient. 14:23:32 Pre-op teaching completed and patient verbalized understanding. 14:23:35 Patient NPO since Midnight. 14:23:41 Use device set Femoral Dx 14:23:43 ACIST Syringe (48909) opened to sterile field. 14:23:43 Bag Decanter (2002S) opened to sterile field. 14:23:44 ACIST Hand Control (14674) opened to sterile field. 14:23:44 ACIST Manifold (85208) opened to sterile field. 14:23:45 Tegaderm 4 x 4 (1626W) opened to sterile field. 14:23:46 Medline Cath Pack ([id number]) opened to sterile field. 14:23:46 DIAGNOSTIC WIRE .035 260cm J wire (660012) opened to sterile field. 14:23:47 DIAGNOSTIC Multipack 5Fr catheter set ([id number]) opened to sterile field. 14:23:48 SHEATH 5FR [place] (HTA413) opened to sterile field. 14:31:27 --------ALL STOP TIME OUT------ 14:31:28 Final Timeout: patient, procedure, and site verified with staff and physician. All members of the team are in agreement. 14:31:29 Right groin site verified by team. 14:31:33 Maximum allowable Isovue 300 dose 213ml. Physician notified. (300ml for normal creatinines. For patients with creatinine of 1.7 or higher multiply weight(kg) x 5 divided by creatinine.) 14:31:37 Fire Safety Assessment: A--An alcohol-based skin anteseptic being used preoperatively., C--Open oxygen or nitrous oxide is being used., D--An ESU, laser, or fiber-optic light is being used. 14:31:40 Physical assessment completed. ASA score P 2 - A patient with mild systemic disease as per Diaz Flores MD. 14:31:42 Sedation plan: IV Moderate Sedation Medication:Versed, Fentanyl 14:31:46 Procedure started. 14:32:14 Local anesthetic to right femoral artery with Lidocaine 2% by Diaz Flores MD.INITIAL ACCESS ONLY 14:32:16 Zero performed for pressure channel P1 14:32:29 Zero performed for pressure channel P1 14:32:34 Zero performed for pressure channel P1 14:32:39 Zero performed for pressure channel P1 14:32:42 Versed 2 mg I.V. was administered by Benita Stokes RN; for sedation; 14:32:47 Fentanyl 50 mcg I.V. was administered by Benita Stokes RN; for sedation; 14:32:52 A 5 Fr sheath was inserted into the Right Femoral artery 14:33:21 A MULTIPACK JL 4.0 5Fr catheter was advanced over the wire and used for Procedure. 14:34:06 LCA angiography performed. 14:34:16 Catheter removed. 14:34:19 A MULTIPACK 3DRC 5Fr catheter was advanced over the wire and used for Procedure. 14:35:07 RCA angiography performed. 14:35:10 Catheter removed. 14:35:14 A MULTIPACK Pigtail 5 Fr catheter was advanced over the wire and used for Procedure. 14:35:35 LV gram done using LINARES 14:35:37 Injector settings: Ml/sec: 10, Volume: 20, 14:36:29 LV hemodynamics recorded. 14:36:45 EF : 30 % 14:36:46 Catheter removed. 14:36:49 EXOSEAL 5Fr (EX500) opened to sterile field. 14:37:14 Sheath removed intact; hemostasis achieved with Exoseal to the Right Femoral artery. 14:38:24 Procedure ended.(Physican Out) 14:39:24 Fluoroscopy time 01.00 minutes. 14:39:29 Fluoroscopy dose: 221 mGy 14:39:29 Flurop Dose total: 221 14:39:35 Contrast amount:Isovue 300 43ml. 14:39:36 Sharps counted by scrub and verified by R.N. 14:39:51 Post-op/insertion site Right Femoral artery dressed using a 4 x 4 and Tegaderm. 14:39:55 Post-procedure physical assessment completed. ASA score P 2 - A patient with mild systemic disease as per Diaz Flores MD. 14:39:59 Post procedure rhythm: sinus rhythm 14:40:02 Estimated blood loss: 5 ml 14:40:03 Post procedure instruction explained to patient.Patient verbalizes understanding. 14:40:04 Patient needs reinforcement of post procedure teaching. 14:40:44 Procedure and supply charges have been captured, reviewed, submitted and are correct. 14:40:46 Procedure Complication : No complications 14:40:48 Vital chart was stopped 14:40:48 See physician's report for complete and final results. 14:40:54 Report given to [facility]. 14:40:57 Patient transfered to [facility] with Bed. 14:40:59 Procedure ended. 14:40:59 Full Disclosure recording stopped 14:41:02 End room use (Document Last) Device Usage Item Name Manufacture Quantity Catalog Hospital Part Current Minimal L ot# / Number Charge Number Stock Stock Serial# Code ACIST Acist 1 69216 286350 806773 704307 20 Syringe Medical (84599) Systems Inc Bag Microtek 1 2001S 915525 37677 125625 5 Decanter Medical Inc. (2001S) ACIST Hand Acist 1 91661 795361 428929 575800 5 Control Medical (15212) Systems Inc ACIST Acist 1 15026 299610 922717 742613 5 Manifold Medical (39603) Systems Inc Tegaderm 4 3M 1 1626W 863699 624260 459565 5 x 4 (1626W) Medline Medline 1 [id number] 128465 19968 101857 5 Cath Pack ([id number]) DIAGNOSTIC St Jr 1 657538 700292 311633 006517 30 WIRE .035 260cm J wire (461955) DIAGNOSTIC Cardinal 1 ZW4036 073895 51995 220648 30 Multipack Health 5Fr catheter set (JW0527) SHEATH 5FR Terumo 1 LGE378 500988 577413 109670 5 [place] (JZE934) MULTIPACK Cardinal 1 069539 5 JL 4.0 5Fr Health catheter MULTIPACK Cardinal 1 991532 5 3DRC 5Fr Health catheter MULTIPACK Cardinal 1 262697 5 Pigtail 5 Health Fr catheter EXOSEAL 5Fr Cardinal 1 EX500 735086 828159 568115 10 (EX500) Health Signature Audit [place] Stage Time Signature Unsigned Intra-Procedure 12/13/2018 Chelle Crook 2:42:59 PM RT(R) Signatures Monitor : Chelle Crook Signature : RT Date : Time : [facility] [address] [facility] [address]
[2018-12-12] MEDS ORDERED: EDARBYCLOR 40-1 EACH PO (19:32)
[2018-12-12] MEDS ORDERED: IPRAT-ALBUT 0.5-3 ML UPD (19:33)
[2018-12-12] MEDS ORDERED: SINGULAIR10 MG PO (19:33)
[2018-12-12] MEDS ORDERED: BREO ELLIPTA 11 EACH INH (19:33)
[2018-12-12 20:14] LABS: BASOPHILS 0.3 % (0-2); EOSINOPHILS 3.5 % (0-7); HEMATOCRIT 38.3 % (42.0-54.0); HEMOGLOBIN 11.8 g/dL (13.5-17.5); IMMATURE GRANULOCYTES 0.5 % (0-5); LYMPHOCYTES 27.3 % (15-50); MCHC 30.8 g/dL (31.0-37.0); MCV 94.1 fL (80.0-100.0); MONOCYTES 8.7 % (2-11); NEUTROPHILS 59.7 % (40-80); RBC 4.07 10x6/uL (4.20-6.10); RDW 14.8 % (11.5-14.5); WBC 7.4 10x3/uL (4.8-10.8)
[2018-12-12 20:21] LABS: PLATELET COUNT 264 10x3/uL (130-400)
[2018-12-12 20:27] LABS: ALBUMIN 2.8 g/dL (3.4-5.0); ALKALINE PHOSPHATASE 137 U/L (46-116); ALT (SGPT) 45 U/L (10-68); BILIRUBIN - TOTAL 0.39 mg/dL (0.2-1.3); CALCIUM 8.9 mg/dL (8.5-10.1); CARBON DIOXIDE 30.5 mmol/L (21.0-32.0); CHLORIDE - SERUM 103 mmol/L (98-107); CREATININE - SERUM 1.7 mg/dL (0.6-1.3); POTASSIUM - SERUM 4.2 mmol/L (3.5-5.1); PROTEIN - SERUM 7.4 g/dL (6.4-8.2); SODIUM 143 mmol/L (136-145); UREA NITROGEN 22 mg/dL (7-18); eGFR NON AFRICAN AMERICAN 42 mL/min (90-120)
[2018-12-12 20:38] LABS: CKMB 0.4 U/L (0.0-3.6); CREATINE KINASE 51 UL (21-232); MAGNESIUM - SERUM 2.3 mg/dL (1.8-2.4)
[2018-12-12 20:44] LABS: CALC OSMOLALITY 287 mosm/kg (275-300); GLUCOSE 92 mg/dL (74-106); TROPONIN-I < 0.017 ng/mL (0.000-0.060)
[2018-12-12 20:55] LABS: APTT 30.4 SECONDS (22.8-39.4); INR 1.11 (0.85-1.17); PROTIME 13.8 SECONDS (11.6-15.0)
[2018-12-12] MEDS ORDERED: MUCINEX DM ER1 EAC1 PO (22:02)
[2018-12-13] VITALS (7 sets, daily range): BP systolic 86–103; BP diastolic 56–75; Ht 160 cm; Wt 72.5 kg
[2018-12-13 10:21] LABS: ANION GAP 9.9 mmol/L (8-16); CALCIUM 8.6 mg/dL (8.5-10.1); CARBON DIOXIDE 33.1 mmol/L (21.0-32.0); CREATININE - SERUM 1.6 mg/dL (0.6-1.3)
[2018-12-13 10:53] LABS: BASOPHILS 0.3 % (0-2); HEMATOCRIT 37.7 % (42.0-54.0); HEMOGLOBIN 11.4 g/dL (13.5-17.5); IMMATURE GRANULOCYTES 0.1 % (0-5); LYMPHOCYTES 21.8 % (15-50); MCH 28.7 pg (26.0-34.0); MCHC 30.2 g/dL (31.0-37.0); MONOCYTES 8.5 % (2-11); NEUTROPHILS 66.3 % (40-80); PLATELET COUNT 278 10x3/uL (130-400); RBC 3.97 10x6/uL (4.20-6.10); RDW 14.9 % (11.5-14.5); WBC 6.7 10x3/uL (4.8-10.8)
--- NOTE | 2018-12-13 16:36 | MORECARE ---
CASE MANAGEMENT DISCHARGE SUMMARY PATIENT: LIDIA FLORES UNIT: [id number] ADM DATE: 12/12/18 AGE: 73 : 44 SEX: M ROOM/BED: D.2134 AUTHOR: DIETER GUEVARA PHYSICIAN: REFERRING PHYSICIAN: DRAKE SANTOS MD DATE OF SERVICE: 12/13/18 Discharge Plan Patient Name: LIDIA FLORES Facility: [facility]:[place] : 1945 Planned Disposition: Inpatient Rehab Anticipated Discharge Date: Discharge Date: Expected LOS: Initial Reviewer: [email or web address] Initial Review Date: 12/12/2018 Generated: 12/13/18 5:36 pm DCPIA - Discharge Planning Initial Assessment Updated by [email or web address]: Bebe Burt on 12/13/18 4:32 pm * Is the patient Alert and Oriented? Yes * How many steps to enter\exit or inside your home? 4, RAILS * PCP MICHAEL TAPIA APN FOR DR DRAKE SANTOS * Pharmacy [facility] * Preadmission Environment Home Alone * ADLs Independent * Equipment None * List name and contact numbers for known caregivers / representatives who currently or will assist patient after discharge: MONIKA CUNNINGHAM, OR WASHINGTON TINSLEY, * Verbal permission to speak to the caregivers and representatives has been obtained from the patient. Yes * Community resources currently utilized None * Additional services required to return to the preadmission environment? Yes * Can the patient safely return to the preadmission environment? No * Has this patient been hospitalized within the prior 30 days at any hospital? No Coverage Notice Reviewer: [id number] - Bebe Burt Notice Issued Date-Time: 12/13/2018 15:55 Notice Type: Medicare Outpatient Observation Notice Notice Delivered To: Patient Relationship to Patient: Self Rn Diabetes Educator Name: Delivery Method: HAND - Hand Delivered Mary Ann Days: Prior Verbal Notification: Recipient Understood Notice: Yes Recipient Signature: Yes Med Rec Note Co-signed by Attending: Coverage Notice Comment: CHAVARRIA DISCUSSED WITH THE PATIENT AND HIS NIECE, WON READ, AFTER VERBAL CONSENT OBTAINED. PT REQUESTED NIECE SIGN CHAVARRIA, AND THEREFORE SHE DID. Patient Name: LIDIA FLORES Page [phone] at 1636 All edits/amendments must be made on the electronic document DICTATION DATE: 12/13/181635 UTILITY PORTER: SIMEON 12/13/181635 RPT#: [id number] DC DATE: STATUS: ADM IN [facility] [address] [place] [address] END OF REPORT
--- NOTE | 2018-12-13 16:46 | MORECARE ---
CASE MANAGEMENT DISCHARGE SUMMARY PATIENT: LIDIA FLORES UNIT: [id number] ADM DATE: 12/12/18 AGE: 73 : 44 SEX: M ROOM/BED: D.2134 AUTHOR: ISMAEL,DOC PHYSICIAN: REFERRING PHYSICIAN: DRAKE SANTOS MD DATE OF SERVICE: 12/13/18 Discharge Plan Patient Name: LIDIA FLORES Facility: [facility]:[place] : 1945 Planned Disposition: Inpatient Rehab Anticipated Discharge Date: Discharge Date: Expected LOS: Initial Reviewer: [email or web address] Initial Review Date: 12/12/2018 Generated: 12/13/18 5:46 pm Comments DCP- Discharge Planning Updated by [email or web address]: Bebe Burt on 12/13/18 3:[address] Patient Name: LIDIA FLORES Admission Status: ER Accout number: [id number] Admission Date: 12-12-2018 : 1945 Admission Diagnosis: Attending: DRAKE SANTOS Current LOS: 1 Anticipated DC Date: Planned Disposition: Inpatient Rehab Primary Insurance: [facility] MED[employer] SOL[employer]IONS Discharge Planning Comments: CM WENT INTO ROOM TO DELIVER CHAVARRIA, AND WE STARTED DISCUSSING DISCHARGE PLANNING (AFTER VERBAL CONSENT OBTAINED FROM PATIENT). PATIENT'S NIECE, WON, AT BEDSIDE AND HAS EXPRESSED SOME CONCERNS ABOUT DR GRIDER DISCHARGING HI HOME IN THE MORNING. SHE EXPLAINED THAT THE PATIENT CAN SIGN HIS NAME ONLY, BUT HE CAN NOT READ OR WRITE MUCH MORE THAN THAT. SHE STATED THAT WHEN SHE CAME IN FROM [place], HE WAS NOT IN GOOD SHAPE. SHE BORROWED A WHEELCHAIR TO TAKE HIM TO THE DOCTORS. SHE STATED THAT HE USUALLY WALKS EVERYWHERE, HE HAS NO CAR, BUT CANNOT WALK ACROSS HIS APARTMENT WITHOUT HOLDING ONTO FURNITURE AND HUNCHING OVER. SHE HAS CONCERNS THAT HE WILL BE UNABLE TO TAKE CARE OF HIMSELF. SHE STATED THAT HE WAS HERE FROM [place] THR, PART OF THE TIME ON A VENT, AND WAS SENT HOME WITH PHYSICAL THERAPY BECAUSE HIS INSURANCE WASN'T RESPONDING TO INPATIENT REHAB (AND SHE PRAISED [employer] AT THIS TIME). HE HAD [facility], BUT THEY DISCHARGED HIM AFTER 12 DAYS BECAUSE HE WAS DOING SO WELL AND THEN [place] JUST [place]. SHE HAS ASKED US TO TRY TO GET HIM INTO [facility] ( SHE WORKS FOR [employer] IN [place], [place]), AND HAS SAID IF THEY NEED TO TAKE HIM HOME UNTIL THE INSURANCE APPROVES IT, SHE WILL. I EXPLAINED THAT WE WOULD BE GLAD TO GET THAT BALL ROLLING. SHE DENIES NEED FOR MEDICAL EQUIPMENT AT THIS TIME AND PATIENT SAYS "WHAT SHE SAID". THE ONLY NEED VERBALIZED IS FOR INPATIENT REHAB. I LEFT MY CARD AND ENCOURAGED THEM TO CALL IF THEY HAVE ANY FURTHER NEEDS. I SPOKE WITH ZOE ORNELAS APRN FOR DR GRIDER AND ORDERS WERE RECEIVED. I SPOKE WITH TAMARA IN REHAB AND ASKED IF SHE COULD ASK THE PHYSICAL THERAPIST TO SEE HIM ONE OF THE FIRST PATIENT SO THAT WE CAN GET STARTED WITH THE REFERRAL TO INPATIENT REHAB AND HIS INSURANCE AUTH. SHE STATED THAT SHE HAS MADE A NOTE FOR IN THE AM. WILL SEND REFERRAL AFTER WE HAVE ALL THE INFORMATION NEEDED TOMORROW. CM WILL CONTINUE TO FOLLOW. Bpm Analyst: Bebe Burt RN DCPIA - Discharge Planning Initial Assessment Updated by [email or web address]: Bebe Burt on 12/13/18 4:32 pm * Is the patient Alert and Oriented? Yes * How many steps to enter\\exit or inside your home? 4, RAILS * PCP MICHAEL TAPIA APN FOR DR DRAKE SANTOS * Pharmacy [facility] * Preadmission Environment Home Alone * ADLs Independent * Equipment None * List name and contact numbers for known caregivers / representatives who currently or will assist patient after discharge: MONIKA CUNNINGHAM, OR WASHINGTON TINSLEY, * Verbal permission to speak to the caregivers and representatives has been obtained from the patient. Yes * Community resources currently utilized None * Additional services required to return to the preadmission environment? Yes * Can the patient safely return to the preadmission environment? No * Has this patient been hospitalized within the prior 30 days at any hospital? No Coverage Notice Reviewer: [id number] - Bebe Burt Notice Issued Date-Time: 12/13/2018 15:55 Notice Type: Medicare Outpatient Observation Notice Notice Delivered To: Patient Relationship to Patient: Self Business Rules Analyst Name: Delivery Method: HAND - Hand Delivered Mary Ann Days: Prior Verbal Notification: Recipient Understood Notice: Yes Recipient Signature: Yes Med Rec Note Co-signed by Attending: Coverage Notice Comment: DEON DISCUSSED WITH THE PATIENT AND HIS NIECE, WON READ, AFTER VERBAL CONSENT OBTAINED. PT REQUESTED NIECE SIGN DEON, AND THEREFORE SHE DID. Last DP export: 12/13/18 3:36 p Patient Name: LIDIA FLORES Page [id number] at 1646 All edits/amendments must be made on the electronic document DICTATION DATE: 12/13/181645 COMPENSATION AGENT: SIMEON 12/13/181645 RPT#: [id number] DC DATE: STATUS: ADM IN [facility] [address] [place] [address] END OF REPORT
[2018-12-14 04:00] VITALS: BP 126/66
[2018-12-14 08:25] VITALS: BP 90/61
[2018-12-14 12:08] VITALS: BP 103/65
--- NOTE | 2018-12-14 15:38 | MORECARE ---
CASE MANAGEMENT DISCHARGE SUMMARY PATIENT: LIDIA FLORES UNIT: [id number] ADM DATE: 12/12/18 AGE: 73 : 44 SEX: M ROOM/BED: D.2134 AUTHOR: ISMAELDOC PHYSICIAN: REFERRING PHYSICIAN: DRAKE SANTOS MD DATE OF SERVICE: 12/14/18 Discharge Plan Patient Name: LIDIA FLORES Facility: [facility]:[place] : 1945 Planned Disposition: Inpatient Rehab Anticipated Discharge Date: Discharge Date: Expected LOS: Initial Reviewer: [id number] Initial Review Date: 12/12/2018 Generated: 12/14/18 4:38 pm DCP- Discharge Planning Updated by [email or web address]: Bebe Burt on 12/13/18 3:[address] Patient Name: LIDIA FLORES Admission Status: ER Accout number: [id number] Admission Date: 12-12-2018 : 1945 Admission Diagnosis: Attending: DRAKE SANTOS Current LOS: 1 Anticipated DC Date: Planned Disposition: Inpatient Rehab Primary Insurance: [facility] MEDICARE SOLUTIONS Discharge Planning Comments: CM WENT INTO ROOM TO DELIVER CHAVARRIA, AND WE STARTED DISCUSSING DISCHARGE PLANNING (AFTER VERBAL CONSENT OBTAINED FROM PATIENT). PATIENT'S NIECE, WON, AT BEDSIDE AND HAS EXPRESSED SOME CONCERNS ABOUT DR GRIDER DISCHARGING [place] HOME IN THE MORNING. SHE EXPLAINED THAT THE PATIENT CAN SIGN HIS NAME ONLY, BUT HE CAN NOT READ OR WRITE MUCH MORE THAN THAT. SHE STATED THAT WHEN SHE CAME IN FROM [place], HE WAS NOT IN GOOD SHAPE. SHE BORROWED A WHEELCHAIR TO TAKE HIM TO THE DOCTORS. SHE STATED THAT HE USUALLY WALKS EVERYWHERE, HE HAS NO CAR, BUT CANNOT WALK ACROSS HIS APARTMENT WITHOUT HOLDING ONTO FURNITURE AND HUNCHING OVER. SHE HAS CONCERNS THAT HE WILL BE UNABLE TO TAKE CARE OF HIMSELF. SHE STATED THAT HE WAS HERE FROM September THR, PART OF THE TIME ON A VENT, AND WAS SENT HOME WITH PHYSICAL THERAPY BECAUSE HIS INSURANCE WASN'T RESPONDING TO INPATIENT REHAB (AND SHE PRAISED [employer] AT THIS TIME). HE HAD [facility], BUT THEY DISCHARGED HIM AFTER 12 DAYS BECAUSE HE WAS DOING SO WELL AND THEN HE JUST [place]ENT [place]. SHE HAS ASKED US TO TRY TO GET HIM INTO [facility] ( SHE WORKS FOR [facility] IN [place], [place]), AND HAS SAID IF THEY NEED TO TAKE HIM HOME UNTIL THE INSURANCE APPROVES IT, SHE WILL. I EXPLAINED THAT WE WOULD BE GLAD TO GET THAT BALL ROLLING. SHE DENIES NEED FOR MEDICAL EQUIPMENT AT THIS TIME AND PATIENT SAYS "WHAT SHE SAID". THE ONLY NEED VERBALIZED IS FOR INPATIENT REHAB. I LEFT MY CARD AND ENCOURAGED THEM TO CALL IF THEY HAVE ANY FURTHER NEEDS. I SPOKE WITH ZOE ORNELAS APRN FOR DR GRIDER AND ORDERS WERE RECEIVED. I SPOKE WITH TAMARA IN REHAB AND ASKED IF SHE COULD ASK THE PHYSICAL THERAPIST TO SEE HIM ONE OF THE FIRST PATIENT SO THAT WE CAN GET STARTED WITH THE REFERRAL TO INPATIENT REHAB AND HIS INSURANCE AUTH. SHE STATED THAT SHE HAS MADE A NOTE FOR IN THE AM. WILL SEND REFERRAL AFTER WE HAVE ALL THE INFORMATION NEEDED TOMORROW. CM WILL CONTINUE TO FOLLOW. Networks Software Consultant: Bebe Burt RN DCPIA - Discharge Planning Initial Assessment Updated by [id number]: Bebe Burt on 12/13/18 4:32 pm * Is the patient Alert and Oriented? Yes * How many steps to enter\\exit or inside your home? 4, RAILS * PCP MICHAEL TAPIA APN FOR DR DRAKE SANTOS * Pharmacy [facility] * Preadmission Environment Home Alone * ADLs Independent * Equipment None * List name and contact numbers for known caregivers / representatives who currently or will assist patient after discharge: MONIKA CUNNINGHAM, OR WASHINGTON TINSLEY, * Verbal permission to speak to the caregivers and representatives has been obtained from the patient. Yes * Community resources currently utilized None * Additional services required to return to the preadmission environment? Yes * Can the patient safely return to the preadmission environment? No * Has this patient been hospitalized within the prior 30 days at any hospital? No External Providers External Provider: [facility] Next Contact Date: 12/14/2018 Service Request Date: Service Type: Resolution: Reviewer: Comments: Coverage Notice Reviewer: [id number] - Bebe Burt Notice Issued Date-Time: 12/13/2018 15:55 Notice Type: Medicare Outpatient Observation Notice Notice Delivered To: Patient Relationship to Patient: Self Video Game Maker Name: Delivery Method: HAND - Hand Delivered Mary Ann Days: Prior Verbal Notification: Recipient Understood Notice: Yes Recipient Signature: Yes Med Rec Note Co-signed by Attending: Coverage Notice Comment: DEON DISCUSSED WITH THE PATIENT AND HIS NIECE, WON READ, AFTER VERBAL CONSENT OBTAINED. PT REQUESTED NIECE SIGN DEON, AND THEREFORE SHE DID. Last DP export: 12/13/18 3:46 p Patient Name: LIDIA FLORES Page [id number] at 1538 All edits/amendments must be made on the electronic document DICTATION DATE: 12/14/181536 AUTOMATION TECHNOLOGIST: SIMEON 12/14/181536 RPT#: [id number] DC DATE: STATUS: ADM IN [facility] [address] [place] [address] END OF REPORT
[2018-12-14 16:06] VITALS: BP 103/64
[2018-12-14 19:54] VITALS: BP 93/66
[2018-12-14 23:55] VITALS: BP 92/66
[2018-12-15 03:55] VITALS: BP 99/70
[2018-12-15 08:18] VITALS: BP 94/67
[2018-12-15 12:08] VITALS: BP 99/72
[2018-12-15 17:05] VITALS: BP 84/54
[2018-12-15 19:44] VITALS: BP 110/78
[2018-12-15 23:50] VITALS: BP 116/84
[2018-12-16 03:55] VITALS: BP 105/73
[2018-12-16 08:34] VITALS: BP 93/56
[2018-12-16 11:20] VITALS: BP 104/63
[2018-12-16 15:32] VITALS: BP 92/63
[2018-12-16 21:11] VITALS: BP 97/69
[2018-12-17 03:55] VITALS: BP 99/64
[2018-12-17 08:28] VITALS: BP 103/73
[2018-12-17 12:11] VITALS: BP 108/64
[2018-12-17 16:48] VITALS: BP 113/66
[2018-12-17 20:00] VITALS: BP 101/71
[2018-12-18 00:30] VITALS: BP 113/81
[2018-12-18 04:30] VITALS: BP 100/70
[2018-12-18 08:17] VITALS: BP 101/66
--- NOTE | 2018-12-18 11:33 | MORECARE ---
CASE MANAGEMENT DISCHARGE SUMMARY PATIENT: LIDIA FLORES UNIT: [id number] ADM DATE: 12/12/18 AGE: 73 : 44 SEX: M ROOM/BED: D.2134 AUTHOR: ISMAEL,DOC PHYSICIAN: REFERRING PHYSICIAN: DRAKE SANTOS MD DATE OF SERVICE: 12/18/18 Discharge Plan Patient Name: LIDIA FLORES Facility: [facility]:[place] : 1945 Planned Disposition: Inpatient Rehab Anticipated Discharge Date: 12/18/18 Discharge Date: Expected LOS: 6 Initial Reviewer: [id number] Initial Review Date: 12/12/2018 Generated: 12/18/18 12:33 pm DCP- Discharge Planning Updated by [id number]: Bebe Burt on 12/13/18 3:[address] Patient Name: LIDIA FLORES Admission Status: ER Accout number: [id number] Admission Date: 12-12-2018 : 1945 Admission Diagnosis: Attending: DRAKE SANTOS Current LOS: 1 Anticipated DC Date: Planned Disposition: Inpatient Rehab Primary Insurance: [facility] MEDICARE SOLUTIONS Discharge Planning Comments: CM WENT INTO ROOM TO DELIVER CHAVARRIA, AND WE STARTED DISCUSSING DISCHARGE PLANNING (AFTER VERBAL CONSENT OBTAINED FROM PATIENT). PATIENT'S NIECE, WON, AT BEDSIDE AND HAS EXPRESSED SOME CONCERNS ABOUT DR GRIDER DISCHARGING [facility] IN THE MORNING. SHE EXPLAINED THAT THE PATIENT CAN SIGN HIS NAME ONLY, BUT HE CAN NOT READ OR WRITE MUCH MORE THAN THAT. SHE STATED THAT WHEN SHE CAME IN FROM [place], HE WAS NOT IN GOOD SHAPE. SHE BORROWED A WHEELCHAIR TO TAKE HIM TO THE DOCTORS. SHE STATED THAT HE USUALLY WALKS EVERYWHERE, HE HAS NO CAR, BUT CANNOT WALK ACROSS HIS APARTMENT WITHOUT HOLDING ONTO FURNITURE AND HUNCHING OVER. SHE HAS CONCERNS THAT HE WILL BE UNABLE TO TAKE CARE OF HIMSELF. SHE STATED THAT HE WAS HERE FROM [place], PART OF THE TIME ON A VENT, AND WAS SENT HOME WITH PHYSICAL THERAPY BECAUSE HIS INSURANCE WASN'T RESPONDING TO INPATIENT REHAB (AND SHE PRAISED [employer] AT THIS TIME). HE HAD [facility], BUT THEY DISCHARGED HIM AFTER 12 DAYS BECAUSE HE WAS DOING SO WELL AND THEN HE JUST WENT [place]. SHE HAS ASKED US TO TRY TO GET HIM INTO [facility] RE[facility] ( SHE WORKS FOR [facility] IN [place], [place]), AND HAS SAID IF THEY NEED TO TAKE HIM HOME UNTIL THE INSURANCE APPROVES IT, SHE WILL. I EXPLAINED THAT WE WOULD BE GLAD TO GET THAT BALL ROLLING. SHE DENIES NEED FOR MEDICAL EQUIPMENT AT THIS TIME AND PATIENT SAYS "WHAT SHE SAID". THE ONLY NEED VERBALIZED IS FOR INPATIENT REHAB. I LEFT MY CARD AND ENCOURAGED THEM TO CALL IF THEY HAVE ANY FURTHER NEEDS. I SPOKE WITH ZOE ORNELAS APRN FOR DR GRIDER AND ORDERS WERE RECEIVED. I SPOKE WITH TAMARA IN REHAB AND ASKED IF SHE COULD ASK THE PHYSICAL THERAPIST TO SEE HIM ONE OF THE FIRST PATIENT SO THAT WE CAN GET STARTED WITH THE REFERRAL TO INPATIENT REHAB AND HIS INSURANCE AUTH. SHE STATED THAT SHE HAS MADE A NOTE FOR IN THE AM. WILL SEND REFERRAL AFTER WE HAVE ALL THE INFORMATION NEEDED TOMORROW. CM WILL CONTINUE TO FOLLOW. Treating And Pumping Supervisor: Bebe Burt RN DCPIA - Discharge Planning Initial Assessment Updated by [id number]: Bebe Burt on 12/13/18 4:32 pm * Is the patient Alert and Oriented? Yes * How many steps to enter\\exit or inside your home? 4, RAILS * PCP MICHAEL TAPIA APN FOR DR DRAKE SANTOS * Pharmacy [facility] * Preadmission Environment Home Alone * ADLs Independent * Equipment None * List name and contact numbers for known caregivers / representatives who currently or will assist patient after discharge: MONIKA CUNNINGHAM, OR WASHINGTON TINSLEY, * Verbal permission to speak to the caregivers and representatives has been obtained from the patient. Yes * Community resources currently utilized None * Additional services required to return to the preadmission environment? Yes * Can the patient safely return to the preadmission environment? No * Has this patient been hospitalized within the prior 30 days at any hospital? No External Providers External Provider: [facility] Next Contact Date: 12/14/2018 Service Request Date: Service Type: Resolution: Reviewer: Comments: Coverage Notice Reviewer: [id number] - Bebe Burt Notice Issued Date-Time: 12/13/2018 15:55 Notice Type: Medicare Outpatient Observation Notice Notice Delivered To: Patient Relationship to Patient: Self Croze Machine Operator Name: Delivery Method: HAND - Hand Delivered Mary Ann Days: Prior Verbal Notification: Recipient Understood Notice: Yes Recipient Signature: Yes Med Rec Note Co-signed by Attending: Coverage Notice Comment: DEON DISCUSSED WITH THE PATIENT AND HIS NIECE, WON READ, AFTER VERBAL CONSENT OBTAINED. PT REQUESTED NIECE SIGN DEON, AND THEREFORE SHE DID. Last DP export: 12/14/18 2:38 p Patient Name: LIDIA FLORES Page [id number] at 1133 All edits/amendments must be made on the electronic document DICTATION DATE: 12/18/18 1132 DIE MAKER BENCH STAMPING: SIMEON 12/18/18 1132 RPT#: [id number] DC DATE: STATUS: ADM IN [facility] [address] [place] [address] END OF REPORT
--- NOTE | 2018-12-18 11:41 | MORECARE ---
CASE MANAGEMENT DISCHARGE SUMMARY PATIENT: LIDIA FLORES UNIT: [id number] ADM DATE: 12/12/18 AGE: 73 : 44 SEX: M ROOM/BED: D.2134 AUTHOR: DIETER GUEVARA PHYSICIAN: REFERRING PHYSICIAN: DRAKE SANTOS MD DATE OF SERVICE: 12/18/18 Discharge Plan Patient Name: LIDIA FLORES Facility: [facility]:[place] : 1945 Planned Disposition: Inpatient Rehab Anticipated Discharge Date: 12/18/18 Discharge Date: Expected LOS: 6 Initial Reviewer: [email or web address] Initial Review Date: 12/12/2018 Generated: 12/18/18 12:41 pm Comments DCP- Discharge Planning Updated by [email or web address]: Stanley Velásquez on 12/18/18 10:[address] Patient Name: LIDIA FLORES Encounter No: [id number] : 1945 Primary Insurance: [facility] MEDICARE SOLUTIONS Anticipated DC Date: 12-18-2018 Planned Disposition: Inpatient Rehab External Planned Provider: [facility] "[facility]" INPATIENT REHAB DCP follow-up note: CM RECEIVED OCCUPATIONAL THERAPY EVALUATION RESULTS, FAXED TO [facility] AT [facility], . CM WAITING ADMISSION DETERMINATION / INSURANCE AUTHORIZATION FOR INPATIENT REHAB SERVICES AT [facility] / [facility] INPATIENT REH[facility]. HONG Quiroz DCP- Discharge Planning Updated by [email or web address]: Bebe Burt on 12/13/18 3:[address] Patient Name: LIDIA FLORES Admission Status: ER Accout number: [id number] Admission Date: 12-12-2018 : 1945 Admission Diagnosis: Attending: DRAKE SANTOS Current LOS: 1 Anticipated DC Date: Planned Disposition: Inpatient Rehab Primary Insurance: [facility] MEDICARE SOLUTIONS Discharge Planning Comments: CM WENT INTO ROOM TO DELIVER CHAVARRIA, AND WE STARTED DISCUSSING DISCHARGE PLANNING (AFTER VERBAL CONSENT OBTAINED FROM PATIENT). PATIENT'S NIECE, WON, AT BEDSIDE AND HAS EXPRESSED SOME CONCERNS ABOUT DR GRIDER DISCHARGING [facility] IN THE MORNING. SHE EXPLAINED THAT THE PATIENT CAN SIGN HIS NAME ONLY, BUT HE CAN NOT READ OR WRITE MUCH MORE THAN THAT. SHE STATED THAT WHEN SHE CAME IN FROM [place], HE WAS NOT IN GOOD SHAPE. SHE BORROWED A WHEELCHAIR TO TAKE HIM TO THE DOCTORS. SHE STATED THAT HE USUALLY WALKS EVERYWHERE, HE HAS NO CAR, BUT CANNOT WALK ACROSS HIS APARTMENT WITHOUT HOLDING ONTO FURNITURE AND HUNCHING OVER. SHE HAS CONCERNS THAT HE WILL BE UNABLE TO TAKE CARE OF HIMSELF. SHE STATED THAT HE WAS [place] FROM [place], PART OF THE TIME ON A VENT, AND WAS SENT HOME WITH PHYSICAL THERAPY BECAUSE HIS INSURANCE WASN'T RESPONDING TO INPATIENT REHAB (AND SHE PRAISED [employer] AT THIS TIME). HE HAD [facility], BUT THEY DISCHARGED HIM AFTER 12 DAYS BECAUSE HE WAS DOING SO WELL AND THEN HE JUST WENT [place]. SHE HAS ASKED US TO TRY TO GET HIM INTO [facility]PATIENT REH[facility] ( SHE WORKS FOR [employer] IN [place], [place]), AND HAS SAID IF THEY NEED TO TAKE HIM HOME UNTIL THE INSURANCE APPROVES IT, SHE WILL. I EXPLAINED THAT WE WOULD BE GLAD TO GET THAT BALL ROLLING. SHE DENIES NEED FOR MEDICAL EQUIPMENT AT THIS TIME AND PATIENT SAYS "WHAT SHE SAID". THE ONLY NEED VERBALIZED IS FOR INPATIENT REHAB. I LEFT MY CARD AND ENCOURAGED THEM TO CALL IF THEY HAVE ANY FURTHER NEEDS. I SPOKE WITH ZOE ORNELAS APRN FOR DR GRIDER AND ORDERS WERE RECEIVED. I SPOKE WITH TAMARA IN REHAB AND ASKED IF SHE COULD ASK THE PHYSICAL THERAPIST TO SEE HIM ONE OF THE FIRST PATIENT SO THAT WE CAN GET STARTED WITH THE REFERRAL TO INPATIENT REHAB AND HIS INSURANCE AUTH. SHE STATED THAT SHE HAS MADE A NOTE FOR IN THE AM. WILL SEND REFERRAL AFTER WE HAVE ALL THE INFORMATION NEEDED TOMORROW. CM WILL CONTINUE TO FOLLOW. Peer Educator: Bebe Burt RN DCPIA - Discharge Planning Initial Assessment Updated by [email or web address]: Bebe Burt on 12/13/18 4:32 pm * Is the patient Alert and Oriented? Yes * How many steps to enter\\exit or inside your home? 4, RAILS * PCP MICHAEL TAPIA APN FOR DR DRAKE SANTOS * Pharmacy [facility] [address] * Preadmission Environment Home Alone * ADLs Independent * Equipment None * List name and contact numbers for known caregivers / representatives who currently or will assist patient after discharge: MONIKA CUNNINGHAM, OR WASHINGTON TINSLEY, * Verbal permission to speak to the caregivers and representatives has been obtained from the patient. Yes * Community resources currently utilized None * Additional services required to return to the preadmission environment? Yes * Can the patient safely return to the preadmission environment? No * Has this patient been hospitalized within the prior 30 days at any hospital? No Coverage Notice Reviewer: [id number] Key Burt Notice Issued Date-Time: 12/13/2018 15:55 Notice Type: Medicare Outpatient Observation Notice Notice Delivered To: Patient Relationship to Patient: Self Binding Machine Operator Name: Delivery Method: HAND - Hand Delivered Mary Ann Days: Prior Verbal Notification: Recipient Understood Notice: Yes Recipient Signature: Yes Med Rec Note Co-signed by Attending: Coverage Notice Comment: DEON DISCUSSED WITH THE PATIENT AND HIS NIECE, WON READ, AFTER VERBAL CONSENT OBTAINED. PT REQUESTED NIECE SIGN CHAVARRIA, AND THEREFORE SHE DID. Last DP export: 12/18/18 10:33 am Patient Name: LIDIA FLORES Page [id number] at 1141 All edits/amendments must be made on the electronic document DICTATION DATE: 12/18/18 1140 [place]FIELD REDEVELOPMENT SITE MANAGER: SIMEON 12/18/18 1140 RPT#: [id number] DC DATE: STATUS: ADM IN [facility] [address] [place] [address] END OF REPORT
[2018-12-18 12:08] VITALS: BP 105/69
--- NOTE | 2018-12-18 14:26 | OP ---
PATIENT NAME: LIDIA FLORES MEDICAL RECORD: [id number] :[birth year] LOCATION:D. D.2134 ADMISSION DATE:12/12/18 SURGEON: ENRRIQUE ALLEN MD DATE OF OPERATION: 12/13/2018 PROCEDURE: Left heart catheterization, selective coronary angiography, right femoral artery approach. CATHETERS: A 5-South African sheath, 5/4 left and right Carlos Enrique, 5/4 pig. The procedure was well tolerated. The patient was returned to [facility]. Sheath removed. ExoSeal device placed. FINDINGS: Left ventriculography shows global LV hypokinesis. Overall LV function reduced, estimated EF 30%. CORONARY ANATOMY: LEFT MAIN: Left main is free of disease. LAD: Free of disease in the diagonal system. CIRCUMFLEX: Free of disease in the marginal system. RIGHT CORONARY ARTERY: Dominant artery, gives rise to PDA, free of disease. IMPRESSION: Nonischemic cardiomyopathy, unable to tolerate ARB. We will try digoxin with low dose aldosterone inhibition in the form of Aldactone 25 every day. Hopefully, his overall physical condition improves and will be able to tolerate ARB/Entresto/beta blockade. TRANSINT:[id number] Voice Confirmation ID: [id number] DOCUMENT ID: [id number] ENRRIQUE ALLEN MD at 1426 CC: [id number] DICTATION DATE: 12/13/18 1505 TOOL AND EQUIPMENT RENTAL CLERK: 12/13/18 1545 ADM IN [place] [id number] [place] [address]
[2018-12-18 15:58] VITALS: BP 102/64
[2018-12-18 20:00] VITALS: BP 113/80
[2018-12-19 00:30] VITALS: BP 124/76
[2018-12-19 08:30] VITALS: BP 114/75
[2018-12-19 11:46] VITALS: BP 90/60
[2018-12-19 15:47] VITALS: BP 99/71
--- NOTE | 2018-12-19 17:03 | MORECARE ---
CASE MANAGEMENT DISCHARGE SUMMARY PATIENT: LIDIA FLORES UNIT: [id number] ADM DATE: 12/12/18 AGE: 73 : 43 SEX: M ROOM/BED: D.2134 AUTHOR: ISMAEL,DOC PHYSICIAN: REFERRING PHYSICIAN: DRAKE SANTOS MD DATE OF SERVICE: 12/19/18 Discharge Plan Patient Name: LIDIA FLORES Facility: [facility]:[place] : 1945 Planned Disposition: Inpatient Rehab Anticipated Discharge Date: 12/18/18 Discharge Date: Expected LOS: 6 Initial Reviewer: [id number] Initial Review Date: 12/12/2018 Generated: 12/19/18 6:02 pm Comments DCP- Discharge Planning Updated by [email or web address]: Bebe Burt on 12/19/18 3:[address] I RECEIVED A CALL @ 3420 FROM [facility] THAT STATED [facility] DENIED THE PATIENT FOR REHAB. @ 3680 I CALLED AND SPOKE TO THE PATIENTS NIECE, MRS READ AND EXPLAINED THIS TO HER. SHE HAS REQUESTED THAT HE BE DISCHARGED TOMORROW SO THAT THINGS CAN BE SET UP FOR HIM AND THAT WE ARRANGE [facility] WITH OT AND PT. I EXPLAINED I WOULD TALK WITH DR SANTOS TO OBTAIN AN ORDER. WE DISCUSSED THE PATIENTS NEED FOR OXYGEN AND SHE HAS REQUESTED THAT [facility] BE THE PROVIDER FOR THIS. SHE ALSO EXPRESSED HER CONCERNS ABOUT HER UNCLES BLOOD PRESSURE. I EXPLAINED I WOULD TALK WITH CARDIOLOGY ABOUT HER CONCERNS BEFORE DISCHARGE. SHE HAS ALSO STATED THAT THE PATIENT WILL NOT BE GOING HOME ON DISCHARGE, THAT HE WILL BE GOING TO STAY WITH HER MOM AND DAD FOR A BIT, AND SHE GAVE ME THE ADDRESS OF [address] [place] [id number] THIS ADDRESS ON THE FACESHEET.. I WENT IN AND SPOKE WITH THE PATIENT AGAIN TO EXPLAIN THE COMPANIES HIS NIECE CHOSE FOR HIM AND HE IS FINE WITH IT, AND HE SIGNED THE MASON FOR BOTH. I SPOKE WITH KAYLIE AT [employer] [facility] ([phone]) AND WILL FAX INFORMATION TO HER AT [phone]. I CALLED [facility] ([phone]) AND SPOKE WITH ALVINA, I WILL FAX INFORMATION TO THEM FOR HOME AND PORTABLE OXYGEN. THEY STATED THEY WERE FAXING ME A FORM THAT I WILL NEED. WILL WAIT ON IT TO ARRIVE. DR SANTOS WAS TALKED TO @ 1617 (PRIOR TO ARRANGEMENT) AND ORDERS WERE RECEIVED TO H/H AND OXYGEN. CM GAYATHRI CONTINUE TO FOLLOW. DCP- Discharge Planning Updated by [id number]: Stanley Velásquez on 12/18/18 10:[address] Patient Name: LIDIA FLORES Encounter No: [id number] : 1945 Primary Insurance: [facility] [employer] Anticipated DC Date: 12-18-2018 Planned Disposition: Inpatient Rehab External Planned Provider: [facility] "[facility]" INPATIENT REHAB DCP follow-up note: CM RECEIVED OCCUPATIONAL THERAPY EVALUATION RESULTS, FAXED TO TAYLOR AT [facility], . CM WAITING ADMISSION DETERMINATION / INSURANCE AUTHORIZATION FOR INPATIENT REHAB SERVICES AT [facility] / [facility] INPATIENT REHAB. Stanley Velásquez, CASE MANAGEMENT DCP- Discharge Planning Updated by [id number]: Bebe Burt on 12/13/18 3:[address] Patient Name: LIDIA FLORES Admission Status: ER Accout number: [id number] Admission Date: 12-12-2018 : 1945 Admission Diagnosis: Attending: DRAKE SANTOS Current LOS: 1 Anticipated DC Date: Planned Disposition: Inpatient Rehab Primary Insurance: [facility] [employer]UTIONS Discharge Planning Comments: CM WENT INTO ROOM TO DELIVER CHAVARRIA, AND WE STARTED DISCUSSING DISCHARGE PLANNING (AFTER VERBAL CONSENT OBTAINED FROM PATIENT). PATIENT'S NIECE, WON, AT BEDSIDE AND HAS EXPRESSED SOME CONCERNS ABOUT DR GRIDER DISCHARGING [facility] IN THE MORNING. SHE EXPLAINED THAT THE PATIENT CAN SIGN HIS NAME ONLY, BUT HE CAN NOT READ OR WRITE MUCH MORE THAN THAT. SHE STATED THAT WHEN SHE CAME IN FROM [place], HE WAS NOT IN GOOD SHAPE. SHE BORROWED A WHEELCHAIR TO TAKE HIM TO THE DOCTORS. SHE STATED THAT HE USUALLY WALKS EVERYWHERE, HE HAS NO CAR, BUT CANNOT WALK ACROSS HIS APARTMENT WITHOUT HOLDING ONTO FURNITURE AND HUNCHING OVER. SHE HAS CONCERNS THAT HE WILL BE UNABLE TO TAKE CARE OF HIMSELF. SHE STATED THAT HE WAS HERE FROM September THR, PART OF THE TIME ON A VENT, AND WAS SENT HOME WITH PHYSICAL THERAPY BECAUSE HIS INSURANCE WASN'T RESPONDING TO INPATIENT REHAB (AND SHE PRAISED [employer] AT THIS TIME). HE HAD [facility], BUT THEY DISCHARGED HIM AFTER 12 DAYS BECAUSE HE WAS DOING SO WELL AND THEN HE JUST WENT [place]. SHE HAS ASKED US TO TRY TO GET HIM INTO [facility] INPATIENT REHAB [facility] ( SHE WORKS FOR [employer] IN [place], [place]), AND HAS SAID IF THEY NEED TO TAKE HIM HOME UNTIL THE INSURANCE APPROVES IT, SHE WILL. I EXPLAINED THAT WE WOULD BE GLAD TO GET THAT BALL ROLLING. SHE DENIES NEED FOR MEDICAL EQUIPMENT AT THIS TIME AND PATIENT SAYS "WHAT SHE SAID". THE ONLY NEED VERBALIZED IS FOR INPATIENT REHAB. I LEFT MY CARD AND ENCOURAGED THEM TO CALL IF THEY HAVE ANY FURTHER NEEDS. I SPOKE WITH ZOE ORNELAS APRN FOR DR GRIDER AND ORDERS WERE RECEIVED. I SPOKE WITH TAMARA IN REHAB AND ASKED IF SHE COULD ASK THE PHYSICAL THERAPIST TO SEE HIM ONE OF THE FIRST PATIENT SO THAT WE CAN GET STARTED WITH THE REFERRAL TO INPATIENT REHAB AND HIS INSURANCE AUTH. SHE STATED THAT SHE HAS MADE A NOTE FOR IN THE AM. WILL SEND REFERRAL AFTER WE HAVE ALL THE INFORMATION NEEDED TOMORROW. CM WILL CONTINUE TO FOLLOW. Assistant Winemaker: Bebe Burt RN DCPIA - Discharge Planning Initial Assessment Updated by [id number]: Bebe Burt on 12/13/18 4:32 pm * Is the patient Alert and Oriented? Yes * How many steps to enter\\exit or inside your home? 4, RAILS * PCP MICHAEL TAPIA APN FOR DR DRAKE SANTOS * Pharmacy [facility] * Preadmission Environment Home Alone * ADLs Independent * Equipment None * List name and contact numbers for known caregivers / representatives who currently or will assist patient after discharge: MONIKA CUN[place], OR WASHINGTON TINSLEY, * Verbal permission to speak to the caregivers and representatives has been obtained from the patient. Yes * Community resources currently utilized None * Additional services required to return to the preadmission environment? Yes * Can the patient safely return to the preadmission environment? No * Has this patient been hospitalized within the prior 30 days at any hospital? No External Providers External Provider: [facility] Next Contact Date: Service Request Date: Service Type: Resolution: Reviewer: Comments: Coverage Notice Reviewer: [id number] - Bebe Burt Notice Issued Date-Time: 12/13/2018 15:55 Notice Type: Medicare Outpatient Observation Notice Notice Delivered To: Patient Relationship to Patient: Self Senior Director Name: Delivery Method: HAND - Hand Delivered Mary Ann Days: Prior Verbal Notification: Recipient Understood Notice: Yes Recipient Signature: Yes Med Rec Note Co-signed by Attending: Coverage Notice Comment: DEON DISCUSSED WITH THE PATIENT AND HIS NIECE, WON READ, AFTER VERBAL CONSENT OBTAINED. PT REQUESTED NIECE SIGN DEON, AND THEREFORE SHE DID. Reviewer: [id number] Key Spence [place] Notice Issued Date-Time: 12/19/2018 16:11 Notice Type: Patient Choice Letter Notice Delivered To: Patient Relationship to Patient: Self Senior Director Name: Delivery Method: - Mary Ann Days: Prior Verbal Notification: Recipient Understood Notice: Recipient Signature: Med Rec Note Co-signed by Attending: Coverage Notice Comment: Last DP export: 12/18/18 10:41 am Patient Name: LIDIA FLORES Page [id number] at 1703 All edits/amendments must be made on the electronic document DICTATION DATE: 12/19/18 170 SPECIAL EVENTS DIRECTOR: SIMEON 12/19/18 170 RPT#: [id number] DC DATE: STATUS: ADM IN [facility] [address] [place] [address] END OF REPORT
[2018-12-19 19:55] VITALS: BP 110/72
[2018-12-20 00:41] VITALS: BP 111/74
[2018-12-20] MEDS ORDERED: FLORINEF 0.1 M0.1 MG PO (07:56)
[2018-12-20 08:36] VITALS: BP 110/77
--- NOTE | 2018-12-20 09:34 | MORECARE ---
CASE MANAGEMENT DISCHARGE SUMMARY PATIENT: LIDIA FLORES UNIT: [id number] ADM DATE: 12/12/18 AGE: 73 : 44 SEX: M ROOM/BED: D.2134 AUTHOR: ISMAELDOC PHYSICIAN: REFERRING PHYSICIAN: DRAKE SANTOS MD DATE OF SERVICE: 12/20/18 Discharge Plan Patient Name: LIDIA FLORES Facility: [facility]:[place] : 1945 Planned Disposition: Inpatient Rehab Anticipated Discharge Date: 12/18/18 Discharge Date: Expected LOS: 6 Initial Reviewer: [id number] Initial Review Date: 12/12/2018 Generated: 12/20/18 10:34 am Comments DCP- Discharge Planning Updated by [id number]: Bebe Burt on 12/20/18 8:[address] @0900 RECEIVED A CALL FROM MEGHANA AT [facility]. SHE QUESTIONED TO WHEN THE PATIENT WOULD DISCHARGE. I EXPLAINED THAT WE HAVE THE ORDERS TO DISCHARGE, HE JUST NEEDS OXYGEN TO GO HOME WITH. SHE STATED THAT RODRIGUE IS GOING TO HAVE TO GO TO DR SANTOS'S OFFICE, AND GET NEW ORDER SIGNED, BECAUSE IN ORDER FOR A PATIENT TO HAVE PORTABLE OXYGEN WITH THEM, THEY HAVE TO HAVE A CONSERVING DEVICE. I APOLOGIZED FOR NOT KNOWING THIS AND EXPLAINED THAT IT WAS NOT EXPLAINED TO ME WHEN ALVINA WAS WALKING ME THROUGH HOW TO FILL OUT THE DWO. RODRIGUE WILL BE UP HERE AFTER NEW ORDER OBTAINED. I HAVE PASSED THIS INFORMATION ON TO THE DISCHARGE NURSE. DCP- Discharge Planning Updated by [id number]: Bebe Burt on 12/19/18 3:[address] I RECEIVED A CALL @ 1554 FROM [facility] ([facility] [employer]) THAT STATED [facility] DENIED THE PATIENT FOR REHAB. @ 1605 I CALLED AND SPOKE TO THE PATIENTS NIECE, MRS READ AND EXPLAINED THIS TO HER. SHE HAS REQUESTED THAT HE BE DISCHARGED TOMORROW SO THAT THINGS CAN BE SET UP FOR HIM AND THAT WE ARRANGE [facility] WITH OT AND PT. I EXPLAINED I WOULD TALK WITH DR SANTOS TO OBTAIN AN ORDER. WE DISCUSSED THE PATIENTS NEED FOR OXYGEN AND SHE HAS REQUESTED THAT [facility] BE THE PROVIDER FOR THIS. SHE ALSO EXPRESSED HER CONCERNS ABOUT HER UNCLES BLOOD PRESSURE. I EXPLAINED I WOULD TALK WITH CARDIOLOGY ABOUT HER CONCERNS BEFORE DISCHARGE. SHE HAS ALSO STATED THAT THE PATIENT WILL NOT BE GOING HOME ON DISCHARGE, THAT HE WILL BE GOING TO STAY WITH HER MOM AND DAD FOR A BIT, AND SHE GAVE ME THE ADDRESS OF [address], [place] [address] THIS ADDRESS ON THE FACESHEET.. I WENT IN AND SPOKE WITH THE PATIENT AGAIN TO EXPLAIN THE COMPANIES HIS NIECE CHOSE FOR HIM AND HE IS FINE WITH IT, AND HE SIGNED THE MASON FOR BOTH. I SPOKE WITH KAYLIE AT [employer] [facility] ([phone]) AND WILL FAX INFORMATION TO HER AT [phone]. I CALLED [facility] ([phone]) AND SPOKE WITH ALVINA, I WILL FAX INFORMATION TO THEM FOR HOME AND PORTABLE OXYGEN. THEY STATED THEY WERE FAXING ME A FORM THAT I WILL NEED. WILL WAIT ON IT TO ARRIVE. DR SANTOS WAS TALKED TO @ 9461 (PRIOR TO ARRANGEMENT) AND ORDERS WERE RECEIVED TO H/H AND OXYGEN. CM GAYATHRI CONTINUE TO FOLLOW. DCP- Discharge Planning Updated by [id number]: Stanley Velásquez on 12/18/18 10:[address] Patient Name: LIDIA FLORES Encounter No: [id number] : 1945 Primary Insurance: [facility] [employer]IC[employer] SOLUTIONS Anticipated DC Date: 12-18-2018 Planned Disposition: Inpatient Rehab External Planned Provider: [facility] "[facility]" INPATIENT REHAB DCP follow-up note: CM RECEIVED OCCUPATIONAL THERAPY EVALUATION RESULTS, FAXED TO TAYLOR AT [facility], . CM WAITING ADMISSION DETERMINATION / INSURANCE AUTHORIZATION FOR INPATIENT REHAB SERVICES AT [facility] / [facility] INPATIENT REHAB. Stanley Velásquez, CASE MANAGEMENT DCP- Discharge Planning Updated by [id number]: Bebe Burt on 12/13/18 3:[address] Patient Name: LIDIA FLROES Admission Status: ER Accout number: [id number] Admission Date: 12-12-2018 : 1945 Admission Diagnosis: Attending: DRAKE SANTOS Current LOS: 1 Anticipated DC Date: Planned Disposition: Inpatient Rehab Primary Insurance: [facility] [employer] Discharge Planning Comments: CM WENT INTO ROOM TO DELIVER CHAVARRIA, AND WE STARTED DISCUSSING DISCHARGE PLANNING (AFTER VERBAL CONSENT OBTAINED FROM PATIENT). PATIENT'S NIECE, WON, AT BEDSIDE AND HAS EXPRESSED SOME CONCERNS ABOUT DR GRIDER DISCHARGING [facility] IN THE MORNING. SHE EXPLAINED THAT THE PATIENT CAN SIGN HIS NAME ONLY, BUT HE CAN NOT READ OR WRITE MUCH MORE THAN THAT. SHE STATED THAT WHEN SHE CAME IN FROM [place], HE WAS NOT IN GOOD SHAPE. SHE BORROWED A WHEELCHAIR TO TAKE HIM TO THE DOCTORS. SHE STATED THAT HE USUALLY WALKS EVERYWHERE, HE HAS NO CAR, BUT CANNOT WALK ACROSS HIS APARTMENT WITHOUT HOLDING ONTO FURNITURE AND HUNCHING OVER. SHE HAS CONCERNS THAT HE WILL BE UNABLE TO TAKE CARE OF HIMSELF. SHE STATED THAT HE WAS HERE FROM [place]R, PART OF THE TIME ON A VENT, AND WAS SENT HOME WITH PHYSICAL THERAPY BECAUSE HIS INSURANCE WASN'T RESPONDING TO INPATIENT REHAB (AND SHE PRAISED [employer] AT THIS TIME). HE HAD [facility], BUT THEY DISCHARGED HIM AFTER 12 DAYS BECAUSE HE WAS DOING SO WELL AND THEN HE JUST WENT [place]. SHE HAS ASKED US TO TRY TO GET HIM INTO [facility] INPATIENT REHAB [facility] ( SHE WORKS FOR [employer] IN [place], [place]), AND HAS SAID IF THEY NEED TO TAKE HIM HOME UNTIL THE INSURANCE APPROVES IT, SHE WILL. I EXPLAINED THAT WE WOULD BE GLAD TO GET THAT BALL ROLLING. SHE DENIES NEED FOR MEDICAL EQUIPMENT AT THIS TIME AND PATIENT SAYS "WHAT SHE SAID". THE ONLY NEED VERBALIZED IS FOR INPATIENT REHAB. I LEFT MY CARD AND ENCOURAGED THEM TO CALL IF THEY HAVE ANY FURTHER NEEDS. I SPOKE WITH ZOE ORNELAS APRN FOR DR GRIDER AND ORDERS WERE RECEIVED. I SPOKE WITH TAMARA IN REHAB AND ASKED IF SHE COULD ASK THE PHYSICAL THERAPIST TO SEE HIM ONE OF THE FIRST PATIENT SO THAT WE CAN GET STARTED WITH THE REFERRAL TO INPATIENT REHAB AND HIS INSURANCE AUTH. SHE STATED THAT SHE HAS MADE A NOTE FOR IN THE AM. WILL SEND REFERRAL AFTER WE HAVE ALL THE INFORMATION NEEDED TOMORROW. CM WILL CONTINUE TO FOLLOW. Alcoholic Counselor: Bebe Burt RN DCPIA - Discharge Planning Initial Assessment Updated by [email or web address]: Bebe Burt on 12/13/18 4:32 pm * Is the patient Alert and Oriented? Yes * How many steps to enter\\exit or inside your home? 4, RAILS * PCP MICHAEL TAPIA APN FOR DR DRAKE SANTOS * Pharmacy [facility] [address] * Preadmission Environment Home Alone * ADLs Independent * Equipment None * List name and contact numbers for known caregivers / representatives who currently or will assist patient after discharge: MONIKA [place], OR WASHINGTON TINSLEY, * Verbal permission to speak to the caregivers and representatives has been obtained from the patient. Yes * Community resources currently utilized None * Additional services required to return to the preadmission environment? Yes * Can the patient safely return to the preadmission environment? No * Has this patient been hospitalized within the prior 30 days at any hospital? No Coverage Notice Reviewer: [id number] Burt Notice Issued Date-Time: 12/13/2018 15:55 Notice Type: Medicare Outpatient Observation Notice Notice Delivered To: Patient Relationship to Patient: Self Home Care Manager Name: Delivery Method: HAND - Hand Delivered Mary Ann Days: Prior Verbal Notification: Recipient Understood Notice: Yes Recipient Signature: Yes Med Rec Note Co-signed by Attending: Coverage Notice Comment: DEON DISCUSSED WITH THE PATIENT AND HIS NIECE, WON READ, AFTER VERBAL CONSENT OBTAINED. PT REQUESTED NIECE SIGN CHAVARRIA, AND THEREFORE SHE DID. Reviewer: [id number] Burt Notice Issued Date-Time: 12/19/2018 16:11 Notice Type: Patient Choice Letter Notice Delivered To: Patient Relationship to Patient: Self Home Care Manager Name: Delivery Method: - Mary Ann Days: Prior Verbal Notification: Recipient Understood Notice: Recipient Signature: Med Rec Note Co-signed by Attending: Coverage Notice Comment: Last DP export: 12/19/18 4:02 pm Patient Name: LIDIA FLORES Page [id number] at 0934 All edits/amendments must be made on the electronic document DICTATION DATE: 12/20/18932 CASE MANAGER: SIMEON 12/20/18932 RPT#: [id number] DC DATE: STATUS: ADM IN [facility] [address] [place] [address] END OF REPORT
[2018-12-20] MEDS ORDERED: ALDACTONE25 MG PO (11:25)
[2018-12-20] MEDS ORDERED: LANOXIN125 MCG PO (11:26)
[2018-12-20 12:07] VITALS: BP 105/67
[2018-12-20] MEDS ORDERED: PROAIR HFA IH (12:17)
--- NOTE | 2018-12-20 17:59 | MORECARE ---
CASE MANAGEMENT DISCHARGE SUMMARY PATIENT: LIDIA FLORES UNIT: [id number] ADM DATE: 12/12/18 AGE: 73 : 43 SEX: M ROOM/BED: D.2134 AUTHOR: ISMAELDOC PHYSICIAN: REFERRING PHYSICIAN: DRAKE SANTOS MD DATE OF SERVICE: 12/20/18 Discharge Plan Patient Name: LIDIA FLORES Facility: [facility]:[place] : 1945 Planned Disposition: Inpatient Rehab Anticipated Discharge Date: 12/18/18 Discharge Date: 12/20/2018 Expected LOS: 6 Initial Reviewer: [id number] Initial Review Date: 12/12/2018 Generated: 12/20/18 6:59 pm Comments DCP- Discharge Planning Updated by [id number]: Bebe Burt on 12/20/18 8:[address] @0900 RECEIVED A CALL FROM MEGHANA AT [facility]. SHE QUESTIONED TO WHEN THE PATIENT WOULD DISCHARGE. I EXPLAINED THAT WE HAVE THE ORDERS TO DISCHARGE, HE JUST NEEDS OXYGEN TO GO HOME WITH. SHE STATED THAT RODRIGUE IS GOING TO HAVE TO GO TO DR SANTOS'S OFFICE, AND GET NEW ORDER SIGNED, BECAUSE IN ORDER FOR A PATIENT TO HAVE PORTABLE OXYGEN WITH THEM, THEY HAVE TO HAVE A CONSERVING DEVICE. I APOLOGIZED FOR NOT KNOWING THIS AND EXPLAINED THAT IT WAS NOT EXPLAINED TO ME WHEN ALVINA WAS WALKING ME THROUGH HOW TO FILL OUT THE DWO. RODRIGUE WILL BE UP HERE AFTER NEW ORDER OBTAINED. I HAVE PASSED THIS INFORMATION ON TO THE DISCHARGE NURSE. DCP- Discharge Planning Updated by [id number]: Bebe Burt on 12/19/18 3:[address] I RECEIVED A CALL @ [address] [facility] [employer]) THAT STATED [facility] DENIED THE PATIENT FOR REHAB. @ 1604 I CALLED AND SPOKE TO THE PATIENTS NIECE, MRS READ AND EXPLAINED THIS TO HER. SHE HAS REQUESTED THAT HE BE DISCHARGED TOMORROW SO THAT THINGS CAN BE SET UP FOR HIM AND THAT WE ARRANGE [facility] WITH OT AND PT. I EXPLAINED I WOULD TALK WITH DR SANTOS TO OBTAIN AN ORDER. WE DISCUSSED THE PATIENTS NEED FOR OXYGEN AND SHE HAS REQUESTED THAT [facility] BE THE PROVIDER FOR THIS. SHE ALSO EXPRESSED HER CONCERNS ABOUT HER UNCLES BLOOD PRESSURE. I EXPLAINED I WOULD TALK WITH CARDIOLOGY ABOUT HER CONCERNS BEFORE DISCHARGE. SHE HAS ALSO STATED THAT THE PATIENT WILL NOT BE GOING HOME ON DISCHARGE, THAT HE WILL BE GOING TO STAY WITH HER MOM AND DAD FOR A BIT, AND SHE GAVE ME THE ADDRESS OF [address], [place] [address] ADDRESS ON THE FACESHEET.. I WENT IN AND SPOKE WITH THE PATIENT AGAIN TO EXPLAIN THE COMPANIES HIS NIECE CHOSE FOR HIM AND HE IS FINE WITH IT, AND HE SIGNED THE [place] FOR BOTH. I SPOKE WITH KAYLIE AT [employer] [facility] ([phone]) AND WILL FAX INFORMATION TO HER AT [phone]. I CALLED [facility] ([phone]) AND SPOKE WITH ALVINA, I WILL FAX INFORMATION TO THEM FOR HOME AND PORTABLE OXYGEN. THEY STATED THEY WERE FAXING ME A FORM THAT I WILL NEED. WILL WAIT ON IT TO ARRIVE. DR SANTOS WAS TALKED TO @ 2987 (PRIOR TO ARRANGEMENT) AND ORDERS WERE RECEIVED TO H/H AND OXYGEN. CM GAYATHRI CONTINUE TO FOLLOW. DCP- Discharge Planning Updated by [id number]: Stanley Velásquez on 12/18/18 10:[address] Patient Name: LIDIA FLORES Encounter No: [id number] : 1945 Primary Insurance: [facility] [employer] Anticipated DC Date: 12-18-2018 Planned Disposition: Inpatient Rehab External Planned Provider: [facility] "[facility]" INPATIENT REHAB DCP follow-up note: CM RECEIVED OCCUPATIONAL THERAPY EVALUATION RESULTS, FAXED TO TAYLOR AT [facility], . CM WAITING ADMISSION DETERMINATION / INSURANCE AUTHORIZATION FOR INPATIENT REHAB SERVICES AT [facility] / [facility] INPATIENT REHAB. Stanley Velásquez, CASE MANAGEMENT DCP- Discharge Planning Updated by [id number]: Bebe Burt on 12/13/18 3:[address] Patient Name: LIDIA FLORES Admission Status: ER Accout number: [id number] Admission Date: 12-12-2018 : 1945 Admission Diagnosis: Attending: DRAKE SANTOS Current LOS: 1 Anticipated DC Date: Planned Disposition: Inpatient Rehab Primary Insurance: [facility] [employer] Discharge Planning Comments: CM WENT INTO ROOM TO DELIVER CHAVARRIA, AND WE STARTED DISCUSSING DISCHARGE PLANNING (AFTER VERBAL CONSENT OBTAINED FROM PATIENT). PATIENT'S NIECE, WON, AT BEDSIDE AND HAS EXPRESSED SOME CONCERNS ABOUT DR GRIDER DISCHARGING [facility] IN THE MORNING. SHE EXPLAINED THAT THE PATIENT CAN SIGN HIS NAME ONLY, BUT HE CAN NOT READ OR WRITE MUCH MORE THAN THAT. SHE STATED THAT WHEN SHE CAME IN FROM [place], HE WAS NOT IN GOOD SHAPE. SHE BORROWED A WHEELCHAIR TO TAKE HIM TO THE DOCTORS. SHE STATED THAT HE USUALLY WALKS EVERYWHERE, HE HAS NO CAR, BUT CANNOT WALK ACROSS HIS APARTMENT WITHOUT HOLDING ONTO FURNITURE AND HUNCHING OVER. SHE HAS CONCERNS THAT HE WILL BE UNABLE TO TAKE CARE OF HIMSELF. SHE STATED THAT HE WAS HERE FROM September THR, PART OF THE TIME ON A VENT, AND WAS SENT HOME WITH PHYSICAL THERAPY BECAUSE HIS INSURANCE WASN'T RESPONDING TO INPATIENT REHAB (AND SHE PRAISED [employer] AT THIS TIME). HE HAD [facility], BUT THEY DISCHARGED HIM AFTER 12 DAYS BECAUSE HE WAS DOING SO WELL AND THEN HE JUST [place]ENT [place]. SHE HAS ASKED US TO TRY TO GET HIM INTO [facility]IENT RE[facility] ( SHE WORKS FOR [employer] IN [place], [place]), AND HAS SAID IF THEY NEED TO TAKE HIM HOME UNTIL THE INSURANCE APPROVES IT, SHE WILL. I EXPLAINED THAT WE WOULD BE GLAD TO GET THAT BALL ROLLING. SHE DENIES NEED FOR MEDICAL EQUIPMENT AT THIS TIME AND PATIENT SAYS "WHAT SHE SAID". THE ONLY NEED VERBALIZED IS FOR INPATIENT REHAB. I LEFT MY CARD AND ENCOURAGED THEM TO CALL IF THEY HAVE ANY FURTHER NEEDS. I SPOKE WITH ZOE ORNELAS APRN FOR DR GRIDER AND ORDERS WERE RECEIVED. I SPOKE WITH TAMARA IN REHAB AND ASKED IF SHE COULD ASK THE PHYSICAL THERAPIST TO SEE HIM ONE OF THE FIRST PATIENT SO THAT WE CAN GET STARTED WITH THE REFERRAL TO INPATIENT REHAB AND HIS INSURANCE AUTH. SHE STATED THAT SHE HAS MADE A NOTE FOR IN THE AM. WILL SEND REFERRAL AFTER WE HAVE ALL THE INFORMATION NEEDED TOMORROW. CM WILL CONTINUE TO FOLLOW. Opthalmic Tech: Bebe Burt RN DCPIA - Discharge Planning Initial Assessment Updated by [id number]: Bebe Burt on 12/13/18 4:32 pm * Is the patient Alert and Oriented? Yes * How many steps to enter\\exit or inside your home? 4, RAILS * PCP MICHAEL TAPIA APN FOR DR DRAKE SANTOS * Pharmacy [facility] * Preadmission Environment Home Alone * ADLs Independent * Equipment None * List name and contact numbers for known caregivers / representatives who currently or will assist patient after discharge: MONIKA CUNNINGHAM, OR SHIRA WASHINGTON FLORES, * Verbal permission to speak to the caregivers and representatives has been obtained from the patient. Yes * Community resources currently utilized None * Additional services required to return to the preadmission environment? Yes * Can the patient safely return to the preadmission environment? No * Has this patient been hospitalized within the prior 30 days at any hospital? No Coverage Notice Reviewer: [id number] Burt Notice Issued Date-Time: 12/13/2018 15:55 Notice Type: Medicare Outpatient Observation Notice Notice Delivered To: Patient Relationship to Patient: Self Card Placer Name: Delivery Method: HAND - Hand Delivered Mary Ann Days: Prior Verbal Notification: Recipient Understood Notice: Yes Recipient Signature: Yes Med Rec Note Co-signed by Attending: Coverage Notice Comment: DEON DISCUSSED WITH THE PATIENT AND HIS NIECE, WON READ, AFTER VERBAL CONSENT OBTAINED. PT REQUESTED NIIMELDA SIGN CHAVARRIA, AND THEREFORE SHE DID. Reviewer: [id number] Key Burt Notice Issued Date-Time: 12/19/2018 16:11 Notice Type: Patient Choice Letter Notice Delivered To: Patient Relationship to Patient: Self Card Placer Name: Delivery Method: - Mary Ann Days: Prior Verbal Notification: Recipient Understood Notice: Recipient Signature: Med Rec Note Co-signed by Attending: Coverage Notice Comment: Last DP export: 12/20/18 8:34 am Patient Name: LIDIA FLORES Page [id number] at 1759 All edits/amendments must be made on the electronic document DICTATION DATE: 12/20/181758 TUBE WINDER HAND: SIMEON 12/20/181758 RPT#: [id number] DC DATE:12/20/18 STATUS: DIS IN [facility] [address] [place] [address] END OF REPORT
== END 2018-12-20 13:26 | disposition home health service (06) ==
LOC: D.ER 19:21 → D.M2 21:10 → OBSVTIME 21:10 → D.M2 21:10
PROVIDERS: Emergency Medicine; Internal Medicine Interventional Cardiology; ADMIT Family Medicine; ATTEND Family Medicine
DX: I42.9 Cardiomyopathy, unspecified (principal); I95.89 Other hypotension; T44.7X5A Adverse effect of beta-adrenoreceptor antagonists, initial encounter; I48.2 Chronic atrial fibrillation; J44.9 Chronic obstructive pulmonary disease, unspecified